=== PATIENT | female | born 1955 | race Caucasian/White ===

== ENCOUNTER → 2016-04-24 | Outpatient (CLI) | payer BC ==
[~2016-04-24] MED LIST: ASPIRIN 81M81 MG/TA2 PO; CLARITIN 1010 MG/TAB PO; CRANBERRY PO; DIAMOX 250MG250 MG PO; FERROUS GL325 MG/TAB PO; FLONASE NASAL S16 GM NS; Flonase Nasal NS; GLUCOPHAGE500 MG/TAB PO; K-DUR 10 MEQ T10 MEQ PO; LANOXIN 0.25M0.25 MG PO; LASIX 40MG TABL40 MG PO; LEVAQUIN 750MG750 M1 PO; MACRODANTIN50 MG/CA1 PO; MULTIPLE VITAMI1 TAB PO; NO HOME MEDICATIONS; NORCO 325 MG-51 TAB PO; NORCO PO; PAXIL 20MG20 MG PO; PYRIDIUM 100MG100 MG PO; REVATIO20 MG PO; SANCTURA20 MG PO; VESICARE 5MG5 MG PO; VITAMIN D 50,1.25 MG PO; WELLBUTRIN SR100 M1 PO; ZESTRIL 10MG10 MG PO; ZESTRIL2.5 MG
== END ==
LOC: COL.RAD 14:26
DX: J98.11 Atelectasis (principal)
CPT/HCPCS: Q9967

== ENCOUNTER 2016-05-02 09:06 | Emergency (ER) | payer BC, OTHER ==
[~2016-05-02] VITALS: Ht 172.7 cm; Wt 164.5 kg
[~2016-05-02 09:06] MED LIST changes: -CRANBERRY PO; -FERROUS GL325 MG/TAB PO; -FLONASE NASAL S16 GM NS; -K-DUR 10 MEQ T10 MEQ PO; -LANOXIN 0.25M0.25 MG PO; -MACRODANTIN50 MG/CA1 PO; -NORCO 325 MG-51 TAB PO; -PYRIDIUM 100MG100 MG PO
[2016-05-02 09:08] VITALS: TEMP 99.2
[2016-05-02 10:09] LABS: ARTERIAL BLD GAS O2 SATURATION 96.7 % (92-100); ARTERIAL BLD GAS TCO2 CT 42.6; ARTERIAL BLOOD GAS BASE EXCESS 10.7 (-2-2); ARTERIAL BLOOD GAS PHT 7.29 C (7.35-7.45); ARTERIAL BLOOD GAS PO2 86.4 mmHg (80-100); ARTERIAL BLOOD GAS PO2T 86.4 (80-100); ARTERIAL BLOOD GAS pH 7.29 (7.35-7.45); OXYHEMOGLOBIN 95.6 %
[2016-05-02 10:14] LABS: ADJUSTED CALCIUM 9.5 mg/dL (8.4-10.2); ALANINE AMINOTRANSFERASE 41 U/L (9-52); ALBUMIN 3.2 gm/dL (3.5-5.0); ALKALINE PHOSPHATASE 85 U/L (50-136); BILIRUBIN,TOTAL 0.6 mg/dL (0.0-1.0); BLOOD UREA NITROGEN 25 mg/dL (7-17); CALCIUM 8.9 mg/dL (8.4-10.2); CHLORIDE 95 mmol/L (98-107); CREATININE, serum 0.92 mg/dL (0.52-1.25); GLUCOSE 126 mg/dL (74-106); POTASSIUM 4.6 mmol/L (3.4-5.0); SODIUM 140 mmol/L (137-145); TOTAL PROTEIN 7.4 gm/dL (6.4-8.2)
[2016-05-02 10:16] LABS: ALLEN TEST YES; ALLENS TEST RESULT PASS; ATS? YES
[2016-05-02 10:20] LABS: CARBON DIOXIDE 41 mmol/L (22-30)
[2016-05-02 10:22] LABS: B-TYPE NATRIURETIC PEPTIDE 253 pg/mL (0-125)
[2016-05-02 10:23] LABS: TROPONIN-I < 0.012 ng/mL (0.000-0.034)
[2016-05-02 10:40] LABS: C-REACTIVE PROTEIN 15.9 mg/dL (0.0-0.9)
[2016-05-02 10:46] LABS: INR 1.2 (0.8-3.0); PROTHROMBIN TIME 13.4 SECONDS (9.7-12.8)
[2016-05-02 11:00] LABS: BASO % 0.2 % (0.0-2.0); EOS # 0.1 (0.0-0.7); EOS % 0.5 % (0-4.0); GRAN # 10.9 (1.4-6.5); GRAN % 85.4 % (42.2-75.2); LYMPH # 0.8 (1.2-3.4); LYMPH % 6.1 % (20.0-51.0); MEAN CELL VOLUME 87 fl (80.0-100.0); MEAN CORPUSCULAR HGB CONC 28 g/dl (33.0-37.0); MEAN PLATELET VOLUME 11.5 fl (7.4-10.4); MONO # 0.9 (0.1-0.6); MONO % 7.2 % (1.7-9.3); PLATELET COUNT 245 K/mm3 (130-400); RED BLOOD COUNT 3.85 M/mm3 (4.10-5.30); REDCELL DISTRIBUTION WIDTH-CV 16.1 % (11.5-14.5); WHITE BLOOD COUNT 12.7 K/mm3 (4.8-10.8)
[2016-05-02 11:08] LABS: HEMATOCRIT 33.6 % (37.0-47.0); HEMOGLOBIN 9.5 g/dl (12.5-16.0); MEAN CORPUSCULAR HEMOGLOBIN 25 pg (27.0-31.0)
[2016-05-02 12:03] LABS: PH 6 (5-8); SQUAMOUS EPITHELIAL 0-2 /hpf; URINE APPEARANCE Hazy; URINE BACTERIA Rare /hpf; URINE BILIRUBIN Negative (NEGATIVE); URINE BLOOD 3+ (NEGATIVE); URINE COLOR Yellow; URINE GLUCOSE Negative (NEGATIVE); URINE KETONE Negative (NEGATIVE); URINE RBC >50 /hpf; URINE UROBILINOGEN Negative (NEGATIVE); URINE WBC 20-50 /hpf
[2016-05-02 14:40] VITALS: BP 163/111; PULSE 113
== END 2016-05-02 14:46 | disposition short-term general hospital (02) ==
LOC: COL.ER 09:06
PROVIDERS: Emergency Medicine
DX: J18.9 Pneumonia, unspecified organism (principal); J96.00 Acute respiratory failure, unspecified whether with hypoxia or hypercapnia; I10 Essential (primary) hypertension; I27.2 Other secondary pulmonary hypertension; N13.2 Hydronephrosis with renal and ureteral calculous obstruction; Z87.442 Personal history of urinary calculi; N39.0 Urinary tract infection, site not specified; B96.20 Unspecified Escherichia coli [E. coli] as the cause of diseases classified elsewhere; Z99.81 Dependence on supplemental oxygen
CPT/HCPCS: J2543; J7030; J7050; Q9967

== ENCOUNTER 2016-06-10 13:19 | Day surgery (SDC) | payer BC ==
[~2016-06-10] VITALS: Ht 172.7 cm; Wt 162.5 kg
[2016-06-10 14:26] VITALS: BP 145/86; PULSE 112; TEMP 99
[2016-06-10 17:30] VITALS: BP 146/83; PULSE 81
[2016-06-10 17:45] VITALS: BP 158/89; PULSE 105
[2016-06-10 18:00] VITALS: BP 128/81; PULSE 99
[2016-06-10 18:15] VITALS: BP 154/88; PULSE 100; TEMP 98.2
[2016-06-10 18:55] VITALS: BP 136/90; PULSE 105; TEMP 98.4
== END 2016-06-10 19:10 | disposition home or self-care (01) ==
LOC: SDCO 13:19 → SURG 17:30 → SDCO 19:10
DX: N20.0 Calculus of kidney (principal); R31.9 Hematuria, unspecified
CPT/HCPCS: OP; C1769; C1894; C2617; J0330; J0690; J1100; J2405; J2704; J2765; J3010; J7120; Q9967

== ENCOUNTER 2016-07-08 10:46 | Day surgery (SDC) | payer BC ==
[~2016-07-08] VITALS: Ht 172.7 cm; Wt 163.5 kg
[2016-07-08] MEDS ORDERED: PYRIDIUM 100MG100 MG PO (11:24)
[2016-07-08] MEDS ORDERED: NORCO 325 MG-51 TAB PO (11:24)
[2016-07-08] MEDS ORDERED: MACRODANTIN50 MG/CA1 PO (11:28)
[2016-07-08] MEDS ORDERED: CLARITIN 1010 MG/TAB PO (11:28)
[2016-07-08 11:37] VITALS: BP 137/70; PULSE 91; TEMP 98.3
[2016-07-08 14:20] VITALS: BP 119/64; PULSE 96; TEMP 97.8
[2016-07-08 14:35] VITALS: BP 132/71; PULSE 112
[2016-07-08 14:50] VITALS: BP 119/85; PULSE 112
[2016-07-08 15:05] VITALS: BP 142/72; PULSE 99
[2016-07-08 17:36] VITALS: BP 115/62; PULSE 85; TEMP 98.2
== END 2016-07-08 15:30 | disposition home or self-care (01) ==
LOC: SDCO 10:46
DX: N20.0 Calculus of kidney (principal); Z86.718 Personal history of other venous thrombosis and embolism; Z79.82 Long term (current) use of aspirin; Z79.899 Other long term (current) drug therapy
CPT/HCPCS: C1769; C1894; C2617; J0330; J0690; J2405; J2704; J3010; J7120; Q9967

== ENCOUNTER 2016-07-11 18:58 | Observation (INO) | payer BC ==
[~2016-07-11] VITALS: Ht 172.7 cm; Wt 170.3 kg
[~2016-07-11 18:58] MED LIST changes: +MACRODANTIN50 MG/CA1 PO; +NORCO 325 MG-51 TAB PO; +PYRIDIUM 100MG100 MG PO
[2016-07-11 19:39] LABS: BASO % 0.3 % (0.0-2.0); EOS # 0.2 (0.0-0.7); EOS % 1.8 % (0-4.0); GRAN # 9.7 (1.4-6.5); LYMPH % 8.6 % (20.0-51.0); MEAN CELL VOLUME 82 fl (80.0-100.0); MEAN CORPUSCULAR HGB CONC 29 g/dl (33.0-37.0); MEAN PLATELET VOLUME 12.4 fl (7.4-10.4); MONO # 0.9 (0.1-0.6); MONO % 7.8 % (1.7-9.3); PLATELET COUNT 202 K/mm3 (130-400); RED BLOOD COUNT 3.81 M/mm3 (4.10-5.30); REDCELL DISTRIBUTION WIDTH-CV 16.9 % (11.5-14.5); WHITE BLOOD COUNT 11.9 K/mm3 (4.8-10.8)
[2016-07-11 19:40] LABS: HEMATOCRIT 31.4 % (37.0-47.0); MEAN CORPUSCULAR HEMOGLOBIN 24 pg (27.0-31.0)
[2016-07-11 19:48] LABS: CALCIUM 9.1 mg/dL (8.4-10.2); CREATININE, serum 0.97 mg/dL (0.52-1.25); POTASSIUM 4.9 mmol/L (3.4-5.0)
[2016-07-11 21:59] LABS: PH 6 (5-8); SQUAMOUS EPITHELIAL None Seen /hpf; URINE APPEARANCE Hazy; URINE BACTERIA Rare /hpf; URINE BILIRUBIN Negative (NEGATIVE); URINE BLOOD 3+ (NEGATIVE); URINE COLOR Yellow; URINE GLUCOSE Negative (NEGATIVE); URINE KETONE Negative (NEGATIVE); URINE RBC >50 /hpf; URINE UROBILINOGEN Negative (NEGATIVE)
[2016-07-12 00:07] VITALS: BP 172/74; PULSE 110; TEMP 98.2
[2016-07-12 05:19] VITALS: BP 159/82; PULSE 107; TEMP 97.9
[2016-07-12 10:34] VITALS: BP 157/68; PULSE 102; TEMP 97.3
[2016-07-12 13:45] VITALS: BP 145/86; PULSE 103; TEMP 98.2
== END 2016-07-12 16:10 | disposition home or self-care (01) ==
LOC: COL.ER 18:58 → SURG 22:58
PROVIDERS: Emergency Medicine
DX: N99.89 Other postprocedural complications and disorders of genitourinary system (principal); R10.12 Left upper quadrant pain; R31.0 Gross hematuria; E66.9 Obesity, unspecified
CPT/HCPCS: G0378; J1170; J2270

== ENCOUNTER 2016-10-15 09:03 | Inpatient (IN) | payer BC ==
[~2016-10-15] VITALS: Ht 172.7 cm; Wt 176.5 kg
[2016-10-15 10:12] VITALS: BP 122/69; PULSE 104; TEMP 98.3
[2016-10-15] MEDS ORDERED: FLONASE NASAL S16 GM NS (10:49)
[2016-10-15] MEDS ORDERED: CRANBERRY PO (10:52)
[2016-10-15 13:14] LABS: BASO % 0.3 % (0.0-2.0); EOS # 0.1 (0.0-0.7); EOS % 1.3 % (0-4.0); GRAN # 5.2 (1.4-6.5); LYMPH % 14.4 % (20.0-51.0); MEAN CELL VOLUME 78 fl (80.0-100.0); MEAN CORPUSCULAR HGB CONC 27 g/dl (33.0-37.0); MEAN PLATELET VOLUME 11.3 fl (7.4-10.4); MONO # 0.8 (0.1-0.6); MONO % 10.7 % (1.7-9.3); PLATELET COUNT 197 K/mm3 (130-400); RED BLOOD COUNT 3.77 M/mm3 (4.10-5.30); REDCELL DISTRIBUTION WIDTH-CV 18.3 % (11.5-14.5); WHITE BLOOD COUNT 7.1 K/mm3 (4.8-10.8)
[2016-10-15 13:15] LABS: HEMATOCRIT 29.5 % (37.0-47.0); MEAN CORPUSCULAR HEMOGLOBIN 21 pg (27.0-31.0)
[2016-10-15 13:31] LABS: ANION GAP 7 mmol/L (7-16); BLOOD UREA NITROGEN 18 mg/dL (7-17); CALCIUM 8.7 mg/dL (8.4-10.2); CARBON DIOXIDE 37 mmol/L (22-30); CHLORIDE 95 mmol/L (98-107); CREATININE, serum 0.78 mg/dL (0.52-1.25); GLUCOSE 95 mg/dL (74-106); SODIUM 139 mmol/L (137-145)
[2016-10-15 13:40] LABS: ARTERIAL BLD GAS O2 SATURATION 93.9 % (92-100); ARTERIAL BLD GAS TCO2 CT 41.1; ARTERIAL BLOOD GAS BASE EXCESS 10.7 (-2-2); ARTERIAL BLOOD GAS HCO3 38.8 meq/L (22-26); ARTERIAL BLOOD GAS PHT 7.32 C (7.35-7.45); ARTERIAL BLOOD GAS PO2 74.2 mmHg (80-100); ARTERIAL BLOOD GAS PO2T 74.2 (80-100); ARTERIAL BLOOD GAS pH 7.32 (7.35-7.45); OXYHEMOGLOBIN 92.9 %
[2016-10-15 13:44] LABS: TROPONIN-I < 0.012 ng/mL (0.000-0.034)
[2016-10-15 13:44] LABS: ATS? YES
[2016-10-15 15:20] LABS: RETIC % 1.5 % (0.5-3.52)
[2016-10-15 15:32] LABS: TOTAL IRON BINDING CAPACITY 410 ug/dL (265-497)
[2016-10-15 16:00] LABS: FERRITIN 10 ng/mL (11-264)
[2016-10-15 19:43] VITALS: BP 142/77; PULSE 105; TEMP 98.3
[2016-10-15 23:13] VITALS: BP 120/52; PULSE 101; TEMP 98.4
[2016-10-16] VITALS (8 sets, daily range): BP systolic 89–114; BP diastolic 36–66; PULSE 90–106; TEMP 98.4–99
[2016-10-16 05:42] LABS: ARTERIAL BLD GAS O2 SATURATION 93.2 % (92-100); ARTERIAL BLOOD GAS BASE EXCESS 12.5 (-2-2); ARTERIAL BLOOD GAS HCO3 39.8 meq/L (22-26); ARTERIAL BLOOD GAS PHT 7.36 C (7.35-7.45); ARTERIAL BLOOD GAS PO2 72.9 mmHg (80-100); ARTERIAL BLOOD GAS PO2T 72.9 (80-100); ARTERIAL BLOOD GAS pH 7.36 (7.35-7.45); OXYHEMOGLOBIN 92.3 %
[2016-10-16 05:46] LABS: ALLEN TEST YES; ALLENS TEST RESULT PASS; ATS? YES
[2016-10-16 09:25] LABS: BASO % 0.3 % (0.0-2.0); EOS # 0.1 (0.0-0.7); EOS % 1.2 % (0-4.0); GRAN # 4.5 (1.4-6.5); GRAN % 69.1 % (42.2-75.2); HEMATOCRIT 29.3 % (37.0-47.0); LYMPH # 1.2 (1.2-3.4); LYMPH % 17.8 % (20.0-51.0); MEAN CELL VOLUME 77 fl (80.0-100.0); MEAN CORPUSCULAR HEMOGLOBIN 21 pg (27.0-31.0); MEAN CORPUSCULAR HGB CONC 27 g/dl (33.0-37.0); MEAN PLATELET VOLUME 11.4 fl (7.4-10.4); MONO # 0.7 (0.1-0.6); MONO % 11.3 % (1.7-9.3); PLATELET COUNT 191 K/mm3 (130-400); RED BLOOD COUNT 3.81 M/mm3 (4.10-5.30); REDCELL DISTRIBUTION WIDTH-CV 18.5 % (11.5-14.5); WHITE BLOOD COUNT 6.5 K/mm3 (4.8-10.8)
[2016-10-17 02:59] VITALS: BP 110/54; PULSE 93; TEMP 99.4
[2016-10-17 06:32] LABS: CALCIUM 8.3 mg/dL (8.4-10.2); CREATININE, serum 0.71 mg/dL (0.52-1.25); POTASSIUM 3.5 mmol/L (3.4-5.0)
[2016-10-17 08:13] VITALS: BP 110/45; BP 112/37; PULSE 110; TEMP 98.5
[2016-10-17 10:02] LABS: BASO % 0.3 % (0.0-2.0); EOS # 0.1 (0.0-0.7); EOS % 1.7 % (0-4.0); GRAN # 5.5 (1.4-6.5); GRAN % 72.3 % (42.2-75.2); LYMPH # 1.1 (1.2-3.4); LYMPH % 14.9 % (20.0-51.0); MEAN CELL VOLUME 77 fl (80.0-100.0); MEAN CORPUSCULAR HGB CONC 28 g/dl (33.0-37.0); MEAN PLATELET VOLUME 11.1 fl (7.4-10.4); MONO # 0.8 (0.1-0.6); MONO % 10.5 % (1.7-9.3); PLATELET COUNT 206 K/mm3 (130-400); RED BLOOD COUNT 3.87 M/mm3 (4.10-5.30); REDCELL DISTRIBUTION WIDTH-CV 18.5 % (11.5-14.5); WHITE BLOOD COUNT 7.6 K/mm3 (4.8-10.8)
[2016-10-17 10:19] LABS: HEMATOCRIT 29.6 % (37.0-47.0); HEMOGLOBIN 8.2 g/dl (12.5-16.0); MEAN CORPUSCULAR HEMOGLOBIN 21 pg (27.0-31.0)
[2016-10-17 11:07] VITALS: BP 114/47; PULSE 105; TEMP 98.7
[2016-10-17 14:27] VITALS: BP 101/54; PULSE 77; TEMP 97.9
[2016-10-17 20:12] VITALS: BP 117/55; PULSE 97; TEMP 98.7
[2016-10-17 23:22] VITALS: BP 147/93; PULSE 98; TEMP 98.6
[2016-10-18 03:55] VITALS: BP 154/62; PULSE 107; TEMP 98.5
[2016-10-18 05:16] LABS: ARTERIAL BLD GAS O2 SATURATION 89.6 % (92-100); ARTERIAL BLD GAS TCO2 CT 46.6; ARTERIAL BLOOD GAS BASE EXCESS 18.1 (-2-2); ARTERIAL BLOOD GAS HCO3 44.5 meq/L (22-26); ARTERIAL BLOOD GAS PHT 7.45 C (7.35-7.45); ARTERIAL BLOOD GAS PO2 56.2 mmHg (80-100); ARTERIAL BLOOD GAS PO2T 56.2 (80-100); ARTERIAL BLOOD GAS pH 7.45 (7.35-7.45); OXYHEMOGLOBIN 88.4 %
[2016-10-18 05:19] LABS: ALLEN TEST YES; ALLENS TEST RESULT PASS; ATS? YES
[2016-10-18 07:44] VITALS: BP 114/48; PULSE 110; TEMP 99.6
[2016-10-18] MEDS ORDERED: FERROUS GL325 MG/TAB PO (08:18)
[2016-10-18] MEDS ORDERED: LASIX 40MG TABL40 MG PO (08:20)
[2016-10-18] MEDS ORDERED: K-DUR 10 MEQ T10 MEQ PO (08:22)
[2016-10-18] MEDS ORDERED: DIAMOX 250MG250 MG PO ×2 (10:59→11:01)
[2016-10-18] MEDS ORDERED: LANOXIN 0.25M0.25 MG PO (10:59)
[2016-10-18 12:23] VITALS: BP 122/41; PULSE 60; TEMP 98.1
[2016-10-18 13:13] LABS: RENIN,PLASMA 0.8 ng/mL/h (())
== END 2016-10-18 16:29 | disposition home or self-care (01) | DRG 189 ==
LOC: MEDICAL 09:03
PROVIDERS: Physician Assistant
DX: J96.02 Acute respiratory failure with hypercapnia (principal); Z68.43 Body mass index [BMI] 50.0-59.9, adult; E66.01 Morbid (severe) obesity due to excess calories; I27.2 Other secondary pulmonary hypertension; R60.9 Edema, unspecified; I10 Essential (primary) hypertension; D50.9 Iron deficiency anemia, unspecified; Z86.718 Personal history of other venous thrombosis and embolism; Z86.711 Personal history of pulmonary embolism
CPT/HCPCS: 99223-AI; 99232-AI; 99239; G8978-GP; G8979-GP; J1650

== ENCOUNTER 2016-12-30 06:22 | Day surgery (SDC) | payer BC ==
[2016-12-30] VITALS (11 sets, daily range): BP systolic 119–152; BP diastolic 57–93; PULSE 84–95; TEMP 98.2
[~2016-12-30] VITALS: Ht 172.8 cm; Wt 156.4 kg
[~2016-12-30 06:22] MED LIST changes: +CRANBERRY PO; +FERROUS GL325 MG/TAB PO; +FLONASE NASAL S16 GM NS; +K-DUR 10 MEQ T10 MEQ PO; +LANOXIN 0.25M0.25 MG PO
[2016-12-30] MEDS ORDERED: PRINIVIL10 MG PO (07:25)
[2016-12-30] MEDS ORDERED: WELLBUTRIN XL150 MG PO (07:25)
[2016-12-30] MEDS ORDERED: HCTZ 25MG TAB25 MG PO (07:25)
[2016-12-30] MEDS ORDERED: ASPIRIN 81M81 MG/TA2 PO (07:27)
[2016-12-30] MEDS ORDERED: SANCTURA20 MG PO (07:28)
[2016-12-30] MEDS ORDERED: LASIX 40MG TABL40 MG PO (07:29)
[2016-12-30] MEDS ORDERED: NATURAL IRON65 MG PO (07:30)
[2016-12-30] MEDS ORDERED: K-DUR 10 MEQ T10 MEQ PO (07:32)
[2016-12-30] MEDS ORDERED: FLONASEALLERGY NS (07:33)
[2016-12-30 07:34] LABS: PROTHROMBIN TIME 11.3 SECONDS (9.7-12.8)
[2016-12-30 07:46] LABS: CALCIUM 9.1 mg/dL (8.4-10.2); CREATININE, serum 1.07 mg/dL (0.52-1.25)
[2016-12-30 08:01] LABS: HEMATOCRIT 41.2 % (37.0-47.0); MEAN CELL VOLUME 79 fl (80.0-100.0); MEAN CORPUSCULAR HEMOGLOBIN 23 pg (27.0-31.0); MEAN CORPUSCULAR HGB CONC 29 g/dl (33.0-37.0); PLATELET COUNT 226 K/mm3 (130-400); RED BLOOD COUNT 5.21 M/mm3 (4.10-5.30); REDCELL DISTRIBUTION WIDTH-CV 19.4 % (11.5-14.5); WHITE BLOOD COUNT 7.4 K/mm3 (4.8-10.8)
== END 2016-12-30 12:55 | disposition home or self-care (01) ==
LOC: EUO 06:22
PROVIDERS: Internal Medicine Cardiovascular Disease
DX: I27.20 Pulmonary hypertension, unspecified (principal); G47.33 Obstructive sleep apnea (adult) (pediatric)
CPT/HCPCS: C1894; J3010

== ENCOUNTER 2017-01-12 20:13 | Emergency (ER) | payer BC ==
[~2017-01-12] VITALS: Ht 172.7 cm; Wt 154.5 kg
[~2017-01-12 20:13] MED LIST changes: +FLONASEALLERGY NS; +HCTZ 25MG TAB25 MG PO; +NATURAL IRON65 MG PO; +PRINIVIL10 MG PO; +WELLBUTRIN XL150 MG PO
[2017-01-12 20:15] VITALS: BP 141/82; TEMP 99.2
[2017-01-12 21:26] LABS: COLLECTION METHOD CLEAN CATCH
[2017-01-12 21:35] LABS: BUDDING YEAST Present /hpf; MUCOUS Present /lpf; PH 7 (5-8); SQUAMOUS EPITHELIAL 0-2 /hpf; URINE APPEARANCE Cloudy; URINE BACTERIA Occasional /hpf; URINE BILIRUBIN Negative (NEGATIVE); URINE BLOOD 3+ (NEGATIVE); URINE COLOR Yellow; URINE GLUCOSE Negative (NEGATIVE); URINE KETONE Negative (NEGATIVE); URINE LEUKOCYTE ESTERASE 3+ (NEGATIVE); URINE PROTEIN(semi-quant) 1+ (NEGATIVE); URINE RBC >50 /hpf; URINE UROBILINOGEN Negative (NEGATIVE)
[2017-01-12 21:36] LABS: URINE WBC >50 /hpf
[2017-01-12 21:50] LABS: BASO # 0.1 (0.0-0.2); BASO % 0.4 % (0.0-2.0); EOS # 0.1 (0.0-0.7); EOS % 0.9 % (0-4.0); GRAN # 10.7 (1.4-6.5); GRAN % 84.7 % (42.2-75.2); HEMATOCRIT 42.2 % (37.0-47.0); HEMOGLOBIN 12.2 g/dl (12.5-16.0); LYMPH # 0.9 (1.2-3.4); LYMPH % 6.8 % (20.0-51.0); MEAN CELL VOLUME 80 fl (80.0-100.0); MEAN CORPUSCULAR HEMOGLOBIN 23 pg (27.0-31.0); MEAN CORPUSCULAR HGB CONC 29 g/dl (33.0-37.0); MEAN PLATELET VOLUME 11.1 fl (7.4-10.4); MONO # 0.9 (0.1-0.6); MONO % 6.8 % (1.7-9.3); PLATELET COUNT 231 K/mm3 (130-400); RED BLOOD COUNT 5.27 M/mm3 (4.10-5.30); WHITE BLOOD COUNT 12.7 K/mm3 (4.8-10.8)
[2017-01-12 22:00] LABS: ADJUSTED CALCIUM 9.1 mg/dL (8.4-10.2); ALBUMIN 4.1 gm/dL (3.5-5.0); BILIRUBIN,TOTAL 0.4 mg/dL (0.0-1.0); C-REACTIVE PROTEIN 1.9 mg/dL (0.0-0.9); CALCIUM 9.2 mg/dL (8.4-10.2); CREATININE, serum 1.18 mg/dL (0.52-1.25); TOTAL PROTEIN 8.4 gm/dL (6.4-8.2)
[2017-01-12] MEDS ORDERED: OMNICEF 300MG300 MG PO (22:55)
[2017-01-12 23:02] VITALS: PULSE 90
== END 2017-01-12 23:03 | disposition home or self-care (01) ==
LOC: COL.ER 20:13
PROVIDERS: Emergency Medicine
DX: N39.0 Urinary tract infection, site not specified (principal); I10 Essential (primary) hypertension; I27.20 Pulmonary hypertension, unspecified; E66.01 Morbid (severe) obesity due to excess calories; Z68.43 Body mass index [BMI] 50.0-59.9, adult; Z87.442 Personal history of urinary calculi

== ENCOUNTER 2017-07-16 07:49 | Inpatient (IN) | payer BC ==
[~2017-07-16] VITALS: Ht 172.7 cm; Wt 162.4 kg
[2017-07-16] VITALS (609 sets, daily range): BP systolic 110–132; BP diastolic 60–85; PULSE 109–115; TEMP 97.9–98.7; O2SAT 85–98
[~2017-07-16 07:49] MED LIST changes: +OMNICEF 300MG300 MG PO
[2017-07-16 08:31] LABS: HEMATOCRIT 40.9 % (37.0-47.0); HEMOGLOBIN 12.3 g/dl (12.5-16.0); MEAN CELL VOLUME 84 fl (80.0-100.0); MEAN CORPUSCULAR HEMOGLOBIN 25 pg (27.0-31.0); MEAN CORPUSCULAR HGB CONC 30 g/dl (33.0-37.0); MEAN PLATELET VOLUME 12.2 fl (7.4-10.4); PLATELET COUNT 249 K/mm3 (130-400); RED BLOOD COUNT 4.89 M/mm3 (4.10-5.30)
[2017-07-16 08:33] LABS: ARTERIAL BLD GAS O2 SATURATION 89.5 % (92-100); ARTERIAL BLD GAS TCO2 CT 31.3; ARTERIAL BLOOD GAS BASE EXCESS 5.3 (-2-2); ARTERIAL BLOOD GAS pH 7.45 (7.35-7.45)
[2017-07-16 08:56] LABS: ALANINE AMINOTRANSFERASE 24 U/L (9-52); ALBUMIN 3.8 gm/dL (3.5-5.0); ALKALINE PHOSPHATASE 85 U/L (50-136); ANION GAP 11 mmol/L (7-16); AST,SGOT 18 U/L (15-37); BILIRUBIN,TOTAL 0.4 mg/dL (0.0-1.0); BLOOD UREA NITROGEN 23 mg/dL (7-17); CALCIUM 8.9 mg/dL (8.4-10.2); CARBON DIOXIDE 33 mmol/L (22-30); CHLORIDE 94 mmol/L (98-107); GLUCOSE 132 mg/dL (74-106); POTASSIUM 4.1 mmol/L (3.4-5.0); SODIUM 138 mmol/L (137-145); TOTAL PROTEIN 8.2 gm/dL (6.4-8.2)
[2017-07-16 09:07] LABS: TROPONIN-I < 0.012 ng/mL (0.000-0.034)
[2017-07-16 09:37] LABS: ANISOCYTOSIS 1+; BAND 1 % (0-10); LYMPHOCYTE 4 % (20.0-51.0); NEUTROPHILS 91 % (42.0-75.2); PLATELET ESTIMATE NORMAL (NORMAL)
[2017-07-16 10:47] LABS: COLLECTION METHOD CATHETER
[2017-07-16 11:01] LABS: MUCOUS Present /lpf; PH 7 (5-8); SQUAMOUS EPITHELIAL 0-2 /hpf; URINE APPEARANCE Hazy; URINE BACTERIA Rare /hpf; URINE BILIRUBIN Negative (NEGATIVE); URINE BLOOD 2+ (NEGATIVE); URINE COLOR Yellow; URINE GLUCOSE Negative (NEGATIVE); URINE KETONE Negative (NEGATIVE); URINE LEUKOCYTE ESTERASE 2+ (NEGATIVE); URINE NITRATE Positive (NEGATIVE); URINE PROTEIN(semi-quant) Negative (NEGATIVE); URINE RBC >50 /hpf; URINE UROBILINOGEN Negative (NEGATIVE)
[2017-07-17] VITALS (607 sets, daily range): BP systolic 108–166; BP diastolic 66–84; PULSE 89–105; TEMP 96.9–99.2; O2SAT 85–98
[2017-07-17 02:31] LABS: MEAN CELL VOLUME 81 fl (80.0-100.0); MEAN CORPUSCULAR HGB CONC 31 g/dl (33.0-37.0); MEAN PLATELET VOLUME 11.3 fl (7.4-10.4); PLATELET COUNT 176 K/mm3 (130-400); RED BLOOD COUNT 4.36 M/mm3 (4.10-5.30); REDCELL DISTRIBUTION WIDTH-CV 15.9 % (11.5-14.5)
[2017-07-17 02:40] LABS: INR 1.2 (0.8-3.0); PROTHROMBIN TIME 14.1 SECONDS (9.7-12.8)
[2017-07-17 02:41] LABS: HEMATOCRIT 35.2 % (37.0-47.0); HEMOGLOBIN 10.9 g/dl (12.5-16.0); MEAN CORPUSCULAR HEMOGLOBIN 25 pg (27.0-31.0)
[2017-07-17 02:52] LABS: ALBUMIN 3.1 gm/dL (3.5-5.0); BILIRUBIN,TOTAL 0.3 mg/dL (0.0-1.0); CALCIUM 8.1 mg/dL (8.4-10.2); CREATININE, serum 0.77 mg/dL (0.52-1.25); MAGNESIUM 1.8 mg/dL (1.6-2.3); POTASSIUM 3.8 mmol/L (3.4-5.0); TOTAL PROTEIN 6.6 gm/dL (6.4-8.2)
[2017-07-17 03:00] LABS: BAND 1 % (0-10); LYMPHOCYTE 3 % (20.0-51.0); METAMYELOCYTE 1 % (0-0); NEUTROPHILS 95 % (42.0-75.2)
[2017-07-17 03:03] LABS: HYPOCHROMIA 2+
[2017-07-17 03:04] LABS: ANISOCYTOSIS 1+
[2017-07-17 03:06] LABS: PLATELET ESTIMATE NORMAL (NORMAL); STOMATOCYTE 1+
[2017-07-18 03:46] VITALS: BP 158/89; PULSE 80; TEMP 97.6
[2017-07-18 07:36] LABS: BASO % 0.2 % (0.0-2.0); EOS % 0.2 % (0-4.0); GRAN # 5.7 (1.4-6.5); GRAN % 68.3 % (42.2-75.2); LYMPH # 1.6 (1.2-3.4); LYMPH % 19.6 % (20.0-51.0); MEAN CELL VOLUME 82 fl (80.0-100.0); MEAN CORPUSCULAR HGB CONC 31 g/dl (33.0-37.0); MEAN PLATELET VOLUME 11.6 fl (7.4-10.4); MONO # 0.9 (0.1-0.6); MONO % 11.3 % (1.7-9.3); PLATELET COUNT 186 K/mm3 (130-400); RED BLOOD COUNT 4.32 M/mm3 (4.10-5.30); REDCELL DISTRIBUTION WIDTH-CV 15.9 % (11.5-14.5)
[2017-07-18 07:45] LABS: HEMATOCRIT 35.4 % (37.0-47.0); HEMOGLOBIN 10.9 g/dl (12.5-16.0); MEAN CORPUSCULAR HEMOGLOBIN 25 pg (27.0-31.0)
[2017-07-18 08:01] LABS: ALBUMIN 3.1 gm/dL (3.5-5.0); BILIRUBIN,TOTAL 0.2 mg/dL (0.0-1.0); CALCIUM 8.1 mg/dL (8.4-10.2); CREATININE, serum 0.66 mg/dL (0.52-1.25); POTASSIUM 3.8 mmol/L (3.4-5.0); TOTAL PROTEIN 6.8 gm/dL (6.4-8.2)
[2017-07-18 08:04] VITALS: BP 143/84; PULSE 76; TEMP 96
[2017-07-18 12:37] VITALS: BP 141/90; PULSE 89; TEMP 98.3
[2017-07-18 16:23] VITALS: BP 154/98; PULSE 93; TEMP 98.7
[2017-07-18 19:26] VITALS: BP 151/84; PULSE 96; TEMP 98.5
[2017-07-18 23:38] VITALS: BP 154/73; PULSE 90; TEMP 98.4
[2017-07-19 04:22] VITALS: BP 189/85; PULSE 95; TEMP 99.6
[2017-07-19 07:00] LABS: BASO % 0.2 % (0.0-2.0); EOS # 0.1 (0.0-0.7); EOS % 0.4 % (0-4.0); GRAN # 9.9 (1.4-6.5); GRAN % 80.9 % (42.2-75.2); LYMPH # 1.1 (1.2-3.4); LYMPH % 9.3 % (20.0-51.0); MEAN CELL VOLUME 83 fl (80.0-100.0); MEAN CORPUSCULAR HGB CONC 30 g/dl (33.0-37.0); MEAN PLATELET VOLUME 12.3 fl (7.4-10.4); MONO # 1.1 (0.1-0.6); MONO % 8.8 % (1.7-9.3); PLATELET COUNT 199 K/mm3 (130-400); RED BLOOD COUNT 4.42 M/mm3 (4.10-5.30)
[2017-07-19 07:01] LABS: HEMATOCRIT 36.5 % (37.0-47.0); HEMOGLOBIN 11.1 g/dl (12.5-16.0); MEAN CORPUSCULAR HEMOGLOBIN 25 pg (27.0-31.0)
[2017-07-19 07:08] LABS: ALBUMIN 3.1 gm/dL (3.5-5.0); BILIRUBIN,TOTAL 0.3 mg/dL (0.0-1.0); CALCIUM 8.2 mg/dL (8.4-10.2); CREATININE, serum 0.68 mg/dL (0.52-1.25); POTASSIUM 3.8 mmol/L (3.4-5.0); TOTAL PROTEIN 6.9 gm/dL (6.4-8.2)
[2017-07-19 07:22] VITALS: BP 160/95; PULSE 105; TEMP 98.7
[2017-07-19] MEDS ORDERED: MEDROL 4MG DOSPA4 MG PO (10:19)
[2017-07-19] MEDS ORDERED: MACRODANTIN100 PO (10:21)
[2017-07-19 11:07] VITALS: BP 168/95; PULSE 110; TEMP 97.4
== END 2017-07-19 16:00 | disposition home or self-care (01) | DRG 872 ==
LOC: COL.ER 07:49 → ICU 09:40 → MEDICAL 07-17 15:00
PROVIDERS: Emergency Medicine; Internal Medicine
DX: A41.51 Sepsis due to Escherichia coli [E. coli] (principal); N39.0 Urinary tract infection, site not specified; Z68.43 Body mass index [BMI] 50.0-59.9, adult; E66.2 Morbid (severe) obesity with alveolar hypoventilation; I50.32 Chronic diastolic (congestive) heart failure; J96.12 Chronic respiratory failure with hypercapnia; B96.20 Unspecified Escherichia coli [E. coli] as the cause of diseases classified elsewhere; I11.0 Hypertensive heart disease with heart failure; I27.22 Pulmonary hypertension due to left heart disease
CPT/HCPCS: 99223-AI; 99232-AI; 99233-AI; 99239; J0456; J0696; J1650; J1720; J7030; J7050; J7512

== ENCOUNTER 2018-06-27 20:33 | Inpatient (IN) | payer BC ==
[~2018-06-27] VITALS: Ht 172.7 cm; Wt 169.0 kg
[2018-06-27] VITALS (35 sets, daily range): BP systolic 144; BP diastolic 86; PULSE 115; TEMP 99.3; O2SAT 92–98
[~2018-06-27 20:33] MED LIST changes: +MACRODANTIN100 PO; +MEDROL 4MG DOSPA4 MG PO
[2018-06-27 21:07] LABS: BASO % 0.2 % (0.0-2.0); EOS # 0.1 (0.0-0.7); EOS % 0.4 % (0-4.0); GRAN # 15.2 (1.4-6.5); GRAN % 86.4 % (42.2-75.2); HEMATOCRIT 41.2 % (37.0-47.0); HEMOGLOBIN 12.3 g/dl (12.5-16.0); LYMPH % 5.6 % (20.0-51.0); MEAN CELL VOLUME 77 fl (80.0-100.0); MEAN CORPUSCULAR HEMOGLOBIN 23 pg (27.0-31.0); MEAN CORPUSCULAR HGB CONC 30 g/dl (33.0-37.0); MEAN PLATELET VOLUME 11.3 fl (7.4-10.4); MONO # 1.2 (0.1-0.6); MONO % 6.9 % (1.7-9.3); PLATELET COUNT 256 K/mm3 (130-400); RED BLOOD COUNT 5.32 M/mm3 (4.10-5.30); REDCELL DISTRIBUTION WIDTH-CV 17.7 % (11.5-14.5)
[2018-06-27 21:28] LABS: ALANINE AMINOTRANSFERASE < 6 U/L (9-52); ALKALINE PHOSPHATASE 83 U/L (50-136); ANION GAP 8 mmol/L (7-16); AST,SGOT 19 U/L (15-37); BILIRUBIN,TOTAL 0.3 mg/dL (0.0-1.0); BLOOD UREA NITROGEN 27 mg/dL (7-17); C-REACTIVE PROTEIN 3.5 mg/dL (0.0-0.9); CALCIUM 9.2 mg/dL (8.4-10.2); CARBON DIOXIDE 31 mmol/L (22-30); CHLORIDE 97 mmol/L (98-107); CREATININE, serum 0.92 (0.52-1.25); GLUCOSE 143 mg/dL (74-106); LIPASE 48 U/L (23-300); POTASSIUM 4.1 mmol/L (3.4-5.0); SODIUM 135 mmol/L (137-145); TOTAL PROTEIN 7.9 gm/dL (6.4-8.2)
[2018-06-27 21:37] LABS: COLLECTION METHOD CLEAN CATCH
[2018-06-27 21:40] LABS: TROPONIN-I < 0.012 ng/mL (0.000-0.035)
[2018-06-27 21:44] LABS: MUCOUS Present /lpf; PH 6 (5-8); SQUAMOUS EPITHELIAL 0-2 /hpf; URINE APPEARANCE Cloudy; URINE BACTERIA Rare /hpf; URINE BILIRUBIN Negative (NEGATIVE); URINE BLOOD 1+ (NEGATIVE); URINE COLOR Yellow; URINE GLUCOSE Negative (NEGATIVE); URINE KETONE Negative (NEGATIVE); URINE LEUKOCYTE ESTERASE 3+ (NEGATIVE); URINE NITRATE Positive (NEGATIVE); URINE PROTEIN(semi-quant) Negative (NEGATIVE); URINE RBC 20-50 /hpf; URINE UROBILINOGEN Negative (NEGATIVE)
--- NOTE | 2018-06-27 22:00 | NUR ---
Pt arrived via stretcher from ED X2 staff assist with wheeled walker and personal belongings. Pt was able to transfer X2 staff assist from stretcher to ICU05 bed. Gait was unsteady. Pt reported decreased mobility in the right leg.
--- NOTE | 2018-06-27 22:50 | NUR ---
Pt report received from Yoselyn Ordoñez RN in ED.
[2018-06-27] MEDS ORDERED: TOPAMAX25 M1 PO (23:57)
[2018-06-27] MEDS ORDERED: POTASSIUM CITRATE PO (23:57)
[2018-06-28] VITALS (651 sets, daily range): BP systolic 98–136; BP diastolic 61–83; PULSE 91–107; TEMP 98.2–99.3; O2SAT 70–100
[2018-06-28 05:56] LABS: BASO % 0.3 % (0.0-2.0); EOS # 0.1 (0.0-0.7); EOS % 0.7 % (0-4.0); GRAN # 8.5 (1.4-6.5); GRAN % 80.5 % (42.2-75.2); HEMATOCRIT 37.2 % (37.0-47.0); HEMOGLOBIN 10.9 g/dl (12.5-16.0); LYMPH # 1.2 (1.2-3.4); LYMPH % 10.9 % (20.0-51.0); MEAN CELL VOLUME 79 fl (80.0-100.0); MEAN CORPUSCULAR HEMOGLOBIN 23 pg (27.0-31.0); MEAN CORPUSCULAR HGB CONC 29 g/dl (33.0-37.0); MEAN PLATELET VOLUME 11.1 fl (7.4-10.4); MONO # 0.8 (0.1-0.6); MONO % 7.3 % (1.7-9.3); PLATELET COUNT 200 K/mm3 (130-400); RED BLOOD COUNT 4.71 M/mm3 (4.10-5.30); REDCELL DISTRIBUTION WIDTH-CV 17.5 % (11.5-14.5)
[2018-06-28 06:03] LABS: CALCIUM 8.1 mg/dL (8.4-10.2); CREATININE, serum 0.91 (0.52-1.25); POTASSIUM 3.4 mmol/L (3.4-5.0)
--- NOTE | 2018-06-28 07:00 | NUR ---
Bedside report provided to Karina MONTAGUE. Pt just got back into bed from using the bedside commode.
--- NOTE | 2018-06-28 07:00 | NUR ---
Bedside report recieved from Mitzi MONTAGUE. Patient awake and alert, participates in report. Denies needs at this time. Call light at side.
--- NOTE | 2018-06-28 11:45 | NUR ---
Report called to Karissa MONTAGUE on medical floor. Will transport patient when able.
--- NOTE | 2018-06-28 12:20 | NUR ---
Transferred to medical room 318 via wheel chair with CNAx2.
--- NOTE | 2018-06-28 12:57 | NUR ---
SW attended clinical rounding and met with patient to discuss discharge planning. Patient lives with her and uses a walker to ambulate. Patients PCP is Dr Thaddeus William and she obtains her medications from [facility]. Patient has a Triolgy and o2 at home provided by [facility]. She plans on returning home with her at discharge. SYLWIA will continue to follow.
--- NOTE | 2018-06-28 14:00 | NUR ---
Patient transferred to room. Patient sitting in chair upon arrival. Medications and allergies reviewed. Patient denies SOB, pain, palpitations, dizzines, n/v patient on 2L NC. Assessment completed. Lungs are clear bilaterally. Right foot discoloration, patient states "is normal". Patient is A/O. Patient has 20g in LFA with NS @ 75mls/hr. there is another IV 20g in right hand.
--- NOTE | 2018-06-28 16:30 | NUR ---
Patient assisted to bathroom. Patient uses walker with chair. patient would like to use bedside commode, if it is easier. steady gate with walker. Patient does have difficulty reaching to clean after using restroom, could use assistance. Patient assisted back to chair, currently working with OT.
--- NOTE | 2018-06-28 17:30 | NUR ---
Patient told aide her IV was "burning and puffy". This nurse checked on left forearm IV site. Patient stated "it was burning a little bit ago but its just puffy". Denies pain on touch, no redness noted. IV was removed, catheter tip intact. IVF started on right hand IV.
--- NOTE | 2018-06-28 20:48 | NUR ---
PT RESTING IN BED a+oX4 REPORTS NO PAIN. NO SOA. SHIFT ASSESSMENT COMPLETE/ NO NEEDS AT THIS TIME CALL LIGHT INREACH
[2018-06-29 00:16] VITALS: BP 134/76; PULSE 94; TEMP 98.3
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
[2018-06-29 03:19] VITALS: BP 133/86; PULSE 103; TEMP 98.4
--- NOTE | 2018-06-29 06:04 | NUR ---
pt had an uneventful night. no pain reported. slept in bed most of night with Trilogy on. no needs at this time call light in reach
[2018-06-29 06:48] LABS: BASO % 0.1 % (0.0-2.0); EOS # 0.1 (0.0-0.7); EOS % 1.5 % (0-4.0); HEMOGLOBIN 10.8 g/dl (12.5-16.0); LYMPH # 1.3 (1.2-3.4); LYMPH % 17.6 % (20.0-51.0); MEAN CELL VOLUME 80 fl (80.0-100.0); MEAN CORPUSCULAR HEMOGLOBIN 24 pg (27.0-31.0); MEAN CORPUSCULAR HGB CONC 30 g/dl (33.0-37.0); MEAN PLATELET VOLUME 11.1 fl (7.4-10.4); MONO # 0.8 (0.1-0.6); MONO % 11.7 % (1.7-9.3); PLATELET COUNT 208 K/mm3 (130-400); RED BLOOD COUNT 4.59 M/mm3 (4.10-5.30); REDCELL DISTRIBUTION WIDTH-CV 17.5 % (11.5-14.5)
--- NOTE | 2018-06-29 06:51 | NUR ---
report given to EDDI Castillo. pt reports no needs at this time
[2018-06-29 06:53] LABS: HEMATOCRIT 36.6 % (37.0-47.0)
--- NOTE | 2018-06-29 07:00 | NUR ---
Reported onto EDDI Topete. Assessment completed. O2 on @ 2L NC, breath sounds diminished bilateral bases, no SOB on rest. 0/10 pain, IV to R hand NS @ 75ml/hr, no phlebitis/inifiltration. 2+ pitting edema bilateral lower extremities. Voices no acute concerns.
[2018-06-29 07:19] LABS: CALCIUM 8.2 mg/dL (8.4-10.2); CREATININE, serum 0.83 (0.52-1.25); POTASSIUM 3.9 mmol/L (3.4-5.0)
[2018-06-29 08:00] VITALS: BP 117/55; PULSE 87; TEMP 98.5
--- NOTE | 2018-06-29 10:25 | NUR ---
PATIENT SITTING IN CHAIR UPON ENTRY. DENIES PAIN, DIZZINESS, PALPITATIONS, NUMBNESS OR TINGLING. LUNG SOUNDS ARE CLEAR BILATERALLY. DENIES N/V AND SOB. CURRENTLY ON 3L NC. NO MAJOR CHANGES FROM YESTERDAY. NO FEVERS. CALL LIGHT WITHIN REACH. DENIES OTHER NEEDS AT THIS TIME.
--- NOTE | 2018-06-29 11:42 | NUR ---
Contact precautions initiatated r/t MRSA precautions. Patient education was given, printed off and explained MRSA. VSS. IV R hand d/c by Anna. pain. CMS checks WNL. Reported off to EDDI Topete.
[2018-06-29] MEDS ORDERED: CEFTIN 250250 MG/TAB PO (13:02)
[2018-06-29 13:30] VITALS: BP 123/71; PULSE 98; TEMP 98.1
--- NOTE | 2018-06-29 14:48 | NUR ---
patient sitting in chair. Discharge instructions, appointments, medications and education reviewed. Patient verbalized understanding. Right hand IV discontinued due to infiltration, catheter tip intact. Patient denies pain. No redness, <1 inch edema. patient waiting on to arrive and will be ready to discharge and be escorted out.
--- NOTE | 2018-06-29 16:08 | NUR ---
Patient escorted out via wheelchair by Georgina, aide and .
== END 2018-06-29 16:08 | disposition home or self-care (01) | DRG 872 ==
LOC: COL.ER 20:33 → ICU 22:06 → MEDICAL 22:06
PROVIDERS: Emergency Medicine; Nurse Practitioner; Physician Assistant; ADMIT Hospitalist
DX: A41.9 Sepsis, unspecified organism (principal); N39.0 Urinary tract infection, site not specified; Z68.43 Body mass index [BMI] 50.0-59.9, adult; I50.22 Chronic systolic (congestive) heart failure; E66.2 Morbid (severe) obesity with alveolar hypoventilation; J98.11 Atelectasis; B96.20 Unspecified Escherichia coli [E. coli] as the cause of diseases classified elsewhere; I11.0 Hypertensive heart disease with heart failure; I27.20 Pulmonary hypertension, unspecified; D64.9 Anemia, unspecified; Z86.711 Personal history of pulmonary embolism; F41.8 Other specified anxiety disorders
CPT/HCPCS: 99223-AI; 99232-AI; 99239; A4216; J0456; J0696; J1650; J7030

== ENCOUNTER 2019-05-05 15:47 | Inpatient (IN) | payer MEDICARE, OTHER ==
[2019-05-05] VITALS (189 sets, daily range): BP systolic 77–132; BP diastolic 41–87; PULSE 101–116; TEMP 98.7; O2SAT 87–98
[~2019-05-05] VITALS: Ht 167.6 cm; Wt 182.8 kg
[~2019-05-05 15:47] MED LIST changes: +CEFTIN 250250 MG/TAB PO; +POTASSIUM CITRATE PO; +TOPAMAX25 M1 PO
[2019-05-05 16:55] LABS: HEMATOCRIT 40.8 % (37.0-47.0); HEMOGLOBIN 11.5 g/dl (12.5-16.0); MEAN CELL VOLUME 87 fl (80.0-100.0); MEAN CORPUSCULAR HEMOGLOBIN 24 pg (27.0-31.0); MEAN CORPUSCULAR HGB CONC 28 g/dl (33.0-37.0); MEAN PLATELET VOLUME 11.1 fl (7.4-10.4); PLATELET COUNT 192 K/mm3 (130-400); RED BLOOD COUNT 4.71 M/mm3 (4.10-5.30); REDCELL DISTRIBUTION WIDTH-CV 15.8 % (11.5-14.5)
[2019-05-05 17:14] LABS: ALANINE AMINOTRANSFERASE 12 U/L (9-52); ALBUMIN 4.1 gm/dL (3.5-5.0); ALKALINE PHOSPHATASE 91 U/L (50-136); ANION GAP 7 mmol/L (7-16); AST,SGOT 26 U/L (15-37); BILIRUBIN,TOTAL 0.9 mg/dL (0.0-1.0); BLOOD UREA NITROGEN 22 mg/dL (7-17); C-REACTIVE PROTEIN 2.7 mg/dL (0.0-0.9); CARBON DIOXIDE 38 mmol/L (22-30); CHLORIDE 92 mmol/L (98-107); CREATININE, serum 0.67 (0.52-1.25); GLUCOSE 154 mg/dL (74-106); POTASSIUM 4.1 mmol/L (3.4-5.0); SODIUM 137 mmol/L (137-145)
[2019-05-05 17:26] LABS: TROPONIN-I < 0.012 ng/mL (0.000-0.035)
[2019-05-05 17:31] LABS: BAND 3 % (0-10); EOSINOPHIL 1 % (0-4); LYMPHOCYTE 4 % (20.0-51.0); NEUTROPHILS 91 % (42.0-75.2); PLATELET ESTIMATE NORMAL (NORMAL)
[2019-05-05 17:32] LABS: HYPOCHROMIA 3+
[2019-05-05 17:33] LABS: STOMATOCYTE 2+
[2019-05-05 19:11] LABS: ARTERIAL BLD GAS O2 SATURATION 89.8 % (92-100); ARTERIAL BLD GAS TCO2 CT 42.2; ARTERIAL BLOOD GAS HCO3 39.3 meq/L (22-26); ARTERIAL BLOOD GAS PO2 61.6 mmHg (80-100); ARTERIAL BLOOD GAS pH 7.24 (7.35-7.45)
[2019-05-05 19:12] LABS: ARTERIAL BLOOD GAS PCO2 93.8 mmHg (35-45)
[2019-05-05] MEDS ORDERED: TOPAMAX 25MG25 M1 PO (21:19)
[2019-05-05 21:21] LABS: ARTERIAL BLD GAS O2 SATURATION 97.5 % (92-100); ARTERIAL BLD GAS TCO2 CT 39.4; ARTERIAL BLOOD GAS BASE EXCESS 7.3 (-2-2); ARTERIAL BLOOD GAS HCO3 36.8 meq/L (22-26); ARTERIAL BLOOD GAS PCO2 85.3 mmHg (35-45); ARTERIAL BLOOD GAS PO2 104.8 mmHg (80-100); ARTERIAL BLOOD GAS pH 7.25 (7.35-7.45)
[2019-05-05 21:36] LABS: INR 1.1 (0.8-3.0); PROTHROMBIN TIME 13.1 SECONDS (9.7-12.8)
[2019-05-05 22:06] LABS: COLLECTION METHOD CATHETER
[2019-05-05 22:15] LABS: MUCOUS Present /lpf; PH 8 (5-8); SQUAMOUS EPITHELIAL None Seen /hpf; URINE APPEARANCE Clear; URINE BACTERIA Rare /hpf; URINE BILIRUBIN Negative (NEGATIVE); URINE BLOOD 1+ (NEGATIVE); URINE COLOR Yellow; URINE GLUCOSE Negative (NEGATIVE); URINE KETONE Negative (NEGATIVE); URINE LEUKOCYTE ESTERASE 1+ (NEGATIVE); URINE NITRATE Positive (NEGATIVE); URINE PROTEIN(semi-quant) Negative (NEGATIVE); URINE RBC 20-50 /hpf; URINE UROBILINOGEN Negative (NEGATIVE)
[2019-05-05 23:03] LABS: ARTERIAL BLD GAS O2 SATURATION 96.3 % (92-100); ARTERIAL BLD GAS TCO2 CT 38.2; ARTERIAL BLOOD GAS BASE EXCESS 5.9 (-2-2); ARTERIAL BLOOD GAS HCO3 35.6 meq/L (22-26); ARTERIAL BLOOD GAS PO2 91.2 mmHg (80-100); ARTERIAL BLOOD GAS pH 7.24 (7.35-7.45)
[2019-05-05 23:04] LABS: ARTERIAL BLOOD GAS PCO2 84.9 mmHg (35-45)
[2019-05-06] VITALS (974 sets, daily range): BP systolic 78–173; BP diastolic 49–104; PULSE 78–107; TEMP 98.5–99.4; O2SAT 78–99
--- NOTE | 2019-05-06 01:50 | NUR ---
2019 - RECEIVED REPORT FROM EDDI DURHAM. 2036 - PT ARRIVED IN UNIT VIA STRETCHER ESCORTED BY RN. PT ALERT AND ORIENTED X 4, ON BIPAP AT 80%, PT'S BP LOW AT 70-80'S, AUTOMATIC HEAD SAWYER AWARE OUTSIDE ROOM. 2049 - DR. GUTHRIE AT BEDSIDE TO PUT CENTRAL LINE IN. 2056 - TIMEOUT DONE FOR CENTRAL LINE PLACEMENT. 2100 - XRAY CALLED FOR PLACEMENT VERIFICATION. AFTER COUPLE OF MINUTES, DR. GUTHRIE GAVE GO SIGNAL FOR LINE READY TO BE USED. 2144 - TODD INSERTED PER ORDER.
--- NOTE | 2019-05-06 02:10 | NUR ---
AT BEDSIDE PER PT'S REQUEST.
--- NOTE | 2019-05-06 02:23 | NUR ---
I received a call at approximately 1:20 from ICU. MRS. Ordoñez requested to see a Tennis Centre Manager. She had been admitted for pneumonia earlier and was feeling anxious. I talked with her, reassured her and prayed with her before leaving. I told her I would check in on her before leaving.
[2019-05-06 05:21] LABS: BASO % 0.2 % (0.0-2.0); GRAN # 14.8 (1.4-6.5); GRAN % 94.9 % (42.2-75.2); LYMPH # 0.5 (1.2-3.4); MEAN CELL VOLUME 86 fl (80.0-100.0); MEAN CORPUSCULAR HGB CONC 28 g/dl (33.0-37.0); MEAN PLATELET VOLUME 12.4 fl (7.4-10.4); MONO # 0.2 (0.1-0.6); MONO % 1.3 % (1.7-9.3); PLATELET COUNT 186 K/mm3 (130-400); RED BLOOD COUNT 4.04 M/mm3 (4.10-5.30); REDCELL DISTRIBUTION WIDTH-CV 15.8 % (11.5-14.5)
[2019-05-06 05:24] LABS: HEMATOCRIT 34.6 % (37.0-47.0); HEMOGLOBIN 9.8 g/dl (12.5-16.0); MEAN CORPUSCULAR HEMOGLOBIN 24 pg (27.0-31.0)
[2019-05-06 05:26] LABS: INR 1.1 (0.8-3.0)
[2019-05-06 05:31] LABS: ALBUMIN 3.5 gm/dL (3.5-5.0); BILIRUBIN,TOTAL 0.4 mg/dL (0.0-1.0); CREATININE, serum 0.87 (0.52-1.25); TOTAL PROTEIN 6.8 gm/dL (6.4-8.2)
[2019-05-06 05:46] LABS: ARTERIAL BLD GAS O2 SATURATION 98.2 % (92-100); ARTERIAL BLD GAS TCO2 CT 31.8; ARTERIAL BLOOD GAS BASE EXCESS 3.2 (-2-2); ARTERIAL BLOOD GAS PCO2 57.1 mmHg (35-45); ARTERIAL BLOOD GAS PO2 103.3 mmHg (80-100); ARTERIAL BLOOD GAS pH 7.34 (7.35-7.45)
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
--- NOTE | 2019-05-06 13:36 | NUR ---
Awake, alert, BP stable off Levo since 0600
--- NOTE | 2019-05-06 13:59 | NUR ---
MEDIA SALES REPRESENTATIVE student met with the patient to complete initial assessment. The patient lives in [place] with her , Bryan. The patient is on 2L of oxygen at home and receives medications from [facility] and has a walker. The patient's PCP is Dr. Alka William and patient receives medications from [facility]. The patient has advanced directives in the EMR. information services tech will continue to follow to ensure a safe discharge.
--- NOTE | 2019-05-06 19:55 | NUR ---
Taking po without difficulty. SPO2 improved with addition of chin strap to home trilogy mask. Denies pain, vitals stable. Low grade temp throughout day. Good urine output.
[2019-05-07] VITALS (913 sets, daily range): BP systolic 125–158; BP diastolic 77–99; PULSE 83–109; TEMP 97.4–98.8; O2SAT 80–97
[2019-05-07 05:22] LABS: ALBUMIN 3.5 gm/dL (3.5-5.0); BILIRUBIN,TOTAL 0.3 mg/dL (0.0-1.0); CALCIUM 8.5 mg/dL (8.4-10.2); CREATININE, serum 0.74 (0.52-1.25); POTASSIUM 4.1 mmol/L (3.4-5.0); TOTAL PROTEIN 6.8 gm/dL (6.4-8.2)
[2019-05-07 05:26] LABS: GRAN % 92.5 % (42.2-75.2); LYMPH # 0.4 (1.2-3.4); LYMPH % 5.1 % (20.0-51.0); MEAN CELL VOLUME 85 fl (80.0-100.0); MEAN CORPUSCULAR HGB CONC 28 g/dl (33.0-37.0); MEAN PLATELET VOLUME 12.2 fl (7.4-10.4); MONO # 0.2 (0.1-0.6); MONO % 2.1 % (1.7-9.3); PLATELET COUNT 184 K/mm3 (130-400); RED BLOOD COUNT 3.96 M/mm3 (4.10-5.30); REDCELL DISTRIBUTION WIDTH-CV 15.9 % (11.5-14.5)
[2019-05-07 05:28] LABS: INR 1.1 (0.8-3.0); PROTHROMBIN TIME 12.8 SECONDS (9.7-12.8)
[2019-05-07 05:28] LABS: ARTERIAL BLD GAS O2 SATURATION 94.3 % (92-100); ARTERIAL BLD GAS TCO2 CT 33.8; ARTERIAL BLOOD GAS BASE EXCESS 5.9 (-2-2); ARTERIAL BLOOD GAS HCO3 32.1 meq/L (22-26); ARTERIAL BLOOD GAS PCO2 55.3 mmHg (35-45); ARTERIAL BLOOD GAS PO2 69.8 mmHg (80-100); ARTERIAL BLOOD GAS pH 7.38 (7.35-7.45)
[2019-05-07 05:32] LABS: HEMATOCRIT 33.5 % (37.0-47.0); HEMOGLOBIN 9.5 g/dl (12.5-16.0); MEAN CORPUSCULAR HEMOGLOBIN 24 pg (27.0-31.0)
--- NOTE | 2019-05-07 07:10 | NUR ---
Report given to EDDI Whitt.
--- NOTE | 2019-05-07 08:00 | NUR ---
Shift assessment complete at this time. Plan of care reviewed at bedside with patient. Additional time taken to address any other needs or concerns. Vitals stable at this time. Pt denies pain or any other discomfort. Bed in low position, call light within reach, will continue to monitor.
--- NOTE | 2019-05-07 12:00 | NUR ---
Pt resting comfortably in bed. Denies pain or any other discomforts at this time. Vitals stable. Bed in low position, call light within reach, will continue to monitor.
--- NOTE | 2019-05-07 16:00 | NUR ---
Pt resting comfortably in bed. Denies pain or any other discomforts. Vitals stable at this time. Bed in low position, call light within reach, will continue to monitor.
--- NOTE | 2019-05-07 18:30 | NUR ---
PT report received from daysmift nurse. PT is sitting in the recliner with eyes open, tv on, and family present. PT denies wants/needs at this time as well as stating that she has no pain. Will continue to monitor.
--- NOTE | 2019-05-08 03:04 | NUR ---
PT wakes up with solu-medrol administration amd requests lotion for her face d/t dry skin. Skin lotion provided. PT resting in bed with CPAP on and no s/s of distress noted. Will continue to monitor.
[2019-05-08 04:22] VITALS: BP 161/83; PULSE 46; TEMP 98.6
--- NOTE | 2019-05-08 07:05 | NUR ---
Report given to Antonette MONTAGUE at bedside. PT sitting in recvliner with 02 on per NC with no s/s of distress noted.
[2019-05-08 08:27] LABS: GRAN # 7.9 (1.4-6.5); GRAN % 90.7 % (42.2-75.2); LYMPH # 0.5 (1.2-3.4); LYMPH % 5.8 % (20.0-51.0); MEAN CELL VOLUME 84 fl (80.0-100.0); MEAN CORPUSCULAR HGB CONC 29 g/dl (33.0-37.0); MONO # 0.3 (0.1-0.6); MONO % 3.2 % (1.7-9.3); PLATELET COUNT 189 K/mm3 (130-400); RED BLOOD COUNT 4.06 M/mm3 (4.10-5.30); REDCELL DISTRIBUTION WIDTH-CV 15.9 % (11.5-14.5)
[2019-05-08 08:29] LABS: PROTHROMBIN TIME 11.8 SECONDS (9.7-12.8)
[2019-05-08 08:37] LABS: HEMATOCRIT 34.1 % (37.0-47.0); HEMOGLOBIN 9.8 g/dl (12.5-16.0); MEAN CORPUSCULAR HEMOGLOBIN 24 pg (27.0-31.0)
[2019-05-08 08:37] LABS: ALBUMIN 3.5 gm/dL (3.5-5.0); BILIRUBIN,TOTAL 0.3 mg/dL (0.0-1.0); CALCIUM 8.7 mg/dL (8.4-10.2); CREATININE, serum 0.77 (0.52-1.25); POTASSIUM 4.3 mmol/L (3.4-5.0); TOTAL PROTEIN 6.8 gm/dL (6.4-8.2)
[2019-05-08 09:03] VITALS: BP 137/78; PULSE 76; TEMP 97.7
[2019-05-08 12:01] VITALS: BP 171/96; PULSE 88; TEMP 98.7
[2019-05-08] MEDS ORDERED: OMNICEF 300MG300 MG PO (12:28)
[2019-05-08] MEDS ORDERED: PREDNISONE20 MG PO (12:32)
--- NOTE | 2019-05-08 16:28 | NUR ---
DISCHARGE EDUCATION WAS PROVIDED. TRIPLE LUMEN TO RT IJ WAS REMOVED WITHOUT ISSUES. WENT OVER PRECAUTIONS AND WHAT TO LOOK FOR WITH PT FOR S/S OF INFECTION FOR IJ AREA. IN TO GIVE PT RIDE HOME. NO QUESTIONS VOICED.
== END 2019-05-08 15:30 | disposition home or self-care (01) | DRG 871 ==
LOC: COL.ER 15:47 → ICU 19:09 → MEDICAL 05-07 17:41
PROVIDERS: Emergency Medicine; Nurse Practitioner Family; ADMIT Hospitalist
PROC: 05HM33Z Insertion of Infusion Device into Right Internal Jugular Vein, Percutaneous Approach (ICD-10-PCS; principal; 2019-05-05)
PROC: 5A09457 Assistance with Respiratory Ventilation, 24-96 Consecutive Hours, Continuous Positive Airway Pressure (ICD-10-PCS; 2019-05-06)
DX: A41.9 Sepsis, unspecified organism (principal); J18.1 Lobar pneumonia, unspecified organism; J96.21 Acute and chronic respiratory failure with hypoxia; R65.21 Severe sepsis with septic shock; E66.2 Morbid (severe) obesity with alveolar hypoventilation; N39.0 Urinary tract infection, site not specified; J44.0 Chronic obstructive pulmonary disease with (acute) lower respiratory infection; F41.9 Anxiety disorder, unspecified; R73.9 Hyperglycemia, unspecified; F32.9 Major depressive disorder, single episode, unspecified; I27.20 Pulmonary hypertension, unspecified; Z87.442 Personal history of urinary calculi; Z68.44 Body mass index [BMI] 60.0-69.9, adult; Z79.82 Long term (current) use of aspirin
CPT/HCPCS: 99223-AI; 99233-AI; 99239; A4216; J0456; J0692; J0696; J1650; J2060; J2405; J2920; J2930; J3370; J7030; J7040; J7050; J7060; Q9967

== ENCOUNTER 2019-11-08 18:36 | Inpatient (IN) | payer MEDICARE, OTHER ==
[2019-11-08] VITALS (9 sets, daily range): BP systolic 133; BP diastolic 90; PULSE 120; TEMP 99.2; O2SAT 93–98
[~2019-11-08] VITALS: Ht 172.7 cm; Wt 174.4 kg
[~2019-11-08 18:36] MED LIST changes: +PREDNISONE20 MG PO; +TOPAMAX 25MG25 M1 PO; +WELLBUTRIN SR150 M1 PO; -WELLBUTRIN XL150 MG PO
[2019-11-08 19:11] LABS: HEMATOCRIT 37.4 % (37.0-47.0); HEMOGLOBIN 10.7 g/dl (12.5-16.0); MEAN CELL VOLUME 80 fl (80.0-100.0); MEAN CORPUSCULAR HEMOGLOBIN 23 pg (27.0-31.0); MEAN CORPUSCULAR HGB CONC 29 g/dl (33.0-37.0); MEAN PLATELET VOLUME 11.8 fl (7.4-10.4); PLATELET COUNT 310 K/mm3 (130-400); RED BLOOD COUNT 4.68 M/mm3 (4.10-5.30)
[2019-11-08 19:26] LABS: ARTERIAL BLD GAS O2 SATURATION 95.6 % (92-100); ARTERIAL BLD GAS TCO2 CT 29.8; ARTERIAL BLOOD GAS BASE EXCESS 2.2 (-2-2); ARTERIAL BLOOD GAS HCO3 28.2 meq/L (22-26); ARTERIAL BLOOD GAS PCO2 51.5 mmHg (35-45); ARTERIAL BLOOD GAS PO2 73.8 mmHg (80-100); ARTERIAL BLOOD GAS pH 7.36 (7.35-7.45)
[2019-11-08 19:39] LABS: ALANINE AMINOTRANSFERASE 46 U/L (4-34); ALBUMIN 3.6 gm/dL (3.5-5.0); ALKALINE PHOSPHATASE 175 U/L (50-136); ANION GAP 7 mmol/L (7-16); AST,SGOT 64 U/L (15-37); BILIRUBIN,TOTAL 0.5 mg/dL (0.0-1.0); BLOOD UREA NITROGEN 39 mg/dL (7-17); CALCIUM 8.9 mg/dL (8.4-10.2); CARBON DIOXIDE 33 mmol/L (22-30); CHLORIDE 95 mmol/L (98-107); GLUCOSE 219 mg/dL (74-106); POTASSIUM 5.1 mmol/L (3.4-5.0); SODIUM 136 mmol/L (137-145); TOTAL PROTEIN 7.8 gm/dL (6.4-8.2)
[2019-11-08 19:42] LABS: COLLECTION METHOD CATHETER
[2019-11-08 19:57] LABS: C-REACTIVE PROTEIN 25.4 mg/dL (0.0-0.9)
[2019-11-08 20:05] LABS: PH 5 (5-8); SQUAMOUS EPITHELIAL 0-2 /hpf; URINE APPEARANCE Cloudy; URINE BACTERIA Rare /hpf; URINE BILIRUBIN Negative (NEGATIVE); URINE BLOOD 2+ (NEGATIVE); URINE COLOR Yellow; URINE GLUCOSE Negative (NEGATIVE); URINE KETONE Negative (NEGATIVE); URINE LEUKOCYTE ESTERASE 2+ (NEGATIVE); URINE NITRATE Negative (NEGATIVE); URINE PROTEIN(semi-quant) 1+ (NEGATIVE); URINE UROBILINOGEN Negative (NEGATIVE)
[2019-11-08 21:08] LABS: TROPONIN-I < 0.012 ng/mL (0.000-0.035)
[2019-11-08 21:45] LABS: HYPOCHROMIA 1+; LYMPHOCYTE 5 % (20.0-51.0); MICROCYTOSIS 1+; NEUTROPHILS 90 % (42.0-75.2); PLATELET ESTIMATE NORMAL (NORMAL)
[2019-11-08 21:46] LABS: ANISOCYTOSIS 1+
[2019-11-09] VITALS (668 sets, daily range): BP systolic 123–130; BP diastolic 59–81; PULSE 88–102; TEMP 97.7–97.9; O2SAT 63–100
--- NOTE | 2019-11-09 00:33 | NUR ---
PT ARRIVED TO UNIT AT 2245 ACCOMPANIED BY 2 ER NURSES. ASKED PT IF SHE WOULD BE ABLE TO SCOOT HERSELF FROM BED-TO-BED. PT ATTEMPTED TO SCOOT OVER, BUT WAS UNABLE TO DO SO. PT WAS THEN TRANSFERRED WITH THE HELP OF STAFF AND A SLIDE BOARD. WAS THEN ATTACHED TO CRM MONITOR AND TO BIPAP. DISCUSSED POC. CALL LIGHT WITHIN REACH.
[2019-11-09 06:21] LABS: MEAN CELL VOLUME 79 fl (80.0-100.0); MEAN CORPUSCULAR HGB CONC 29 g/dl (33.0-37.0); MEAN PLATELET VOLUME 12.2 fl (7.4-10.4); PLATELET COUNT 280 K/mm3 (130-400); RED BLOOD COUNT 4.16 M/mm3 (4.10-5.30); REDCELL DISTRIBUTION WIDTH-CV 16.9 % (11.5-14.5)
[2019-11-09 06:35] LABS: HEMOGLOBIN 9.5 g/dl (12.5-16.0); MEAN CORPUSCULAR HEMOGLOBIN 23 pg (27.0-31.0)
--- NOTE | 2019-11-09 06:38 | NUR ---
Vancomycin Initial Dosing Pharmacy Note Ordering provider: Lauro Medrano MD Indication/duration: SEPSIS, PNA, UTI Relevant comorbidities: DM, OBESITY LABS: WBC 29.2, SCr 2.8, CrCl 30, TMax 102.9, BC PENDING Recommendation: VANCOMYCIN 10 MG/KG Loading dose: 2 grams GIVEN IN ED Maintenance dose: 1.75 grams every 24 hours Trough goal: 15 ug/mL. TROUGH 11/11 @ 2300
[2019-11-09 06:47] LABS: ALBUMIN 3.1 gm/dL (3.5-5.0); BILIRUBIN,TOTAL 0.4 mg/dL (0.0-1.0); CREATININE, serum 2.62 (0.52-1.25); POTASSIUM 5.2 mmol/L (3.4-5.0); TOTAL PROTEIN 6.7 gm/dL (6.4-8.2)
--- NOTE | 2019-11-09 07:00 | NUR ---
BEDSIDE REPORT RECEIVED FROM EDDI MARY. PATIENT SITTING UP IN BED ON 6L O2 VIA NASAL CANNULA. WE DISCUSS THAT THE GOAL TODAY WILL BE TO TITRATE HER O2 REQUIREMENTS DOWN TO BASELINE NEEDS IF POSSIBLE. PATIENT VERBALIZES UNDERSTANDING. CARE TAKE OVER AT THIS TIME.
[2019-11-09 08:01] LABS: BAND 12 % (0-10); LYMPHOCYTE 2 % (20.0-51.0); NEUTROPHILS 86 % (42.0-75.2)
[2019-11-09 08:02] LABS: ANISOCYTOSIS 1+; HYPOCHROMIA 1+; MICROCYTOSIS 1+; PLATELET ESTIMATE NORMAL (NORMAL)
--- NOTE | 2019-11-09 11:40 | NUR ---
SYLWIA met with the patient to discuss discharge plan. The patient lives in [place] with her , Bryan. The patient was guarded with her answers and did not want to give SW Bryan's phone number. She states that Bryan is canadian speaking and would not understand us. She states that she also believes Bryan is getting dementia, due to him being more confused lately. She states that he is safe at home and that he is working with one of her employee's right now. The patient is self employed. She reports independence with ADLs and has a walker, is on continuous home oxyygen, and has a trilogy from [place] [facility]. The patient's PCP is Dr. Alka William and she receives her medications from [facility]. She reports occasional difficulties affording her meds. SW informed her about and discussed [place]. The patient states that she is aware of [place], but feels like it is for individuals with children or in worse situations. The patient does not have advanced directives in EMR, but she reports that she does have a DPOA-HC completed and that her daughter, David Tee ([phone]), is her DPOA-HC. David also lives in [place]. The patient states that she has two other children: Jose and another daughter. She did not want to give SW her other daughter's name. The patient plans to return home with her upon discharge. SYLWIA then contacted and reviewed d/c plan with the patient's daughter, David. David confirms that she is the patient's DPOA-HC and states that she has the documents somewhere at home. She states that she would not be able to look for the documents until next week. David had no other questions or concerns for SYLWIA at this time. PT/OT have been ordered. SW to continue to follow.
--- NOTE | 2019-11-09 12:25 | NUR ---
Initial visit; Patient thanked Nonfarm Animal Caretaker for visit, spiritual care, especially prayer and encouragement.
--- NOTE | 2019-11-09 19:40 | NUR ---
REPORT GIVEN TO EDDI MARY
[2019-11-10] VITALS (484 sets, daily range): BP systolic 113–150; BP diastolic 70–95; PULSE 59–115; TEMP 97.4–99; O2SAT 71–100
--- NOTE | 2019-11-10 01:01 | NUR ---
UPON LOOKING AT PATIENTS AT HOME TRILOGY, MY RECOMMENDATION IS THAT SHE USE THE [facility] V60 FOR THE FOLLOWING REASONS. PATIENT CAN NOT REMEMBER THE LAST TIME HER TUBING WAS CHANGED AND UPON ASSESSING TUBING THERE IS DUST, FUNGUS INSIDE THE TUBING, AND THE COLOR OF THE TUBING HAD CHANGED YELLOW. THE WATER HEATER HAS NOT BEEN CHANGED IN A YEAR PER PATIENT AND NEVER HAS BEEN CLEANED. THERE IS CRUSTED YELLOW RESIDUE ON THE INSIDE. WHEN GOING TO ASSESS THE FILTER ON PATIENTS TRILOGY IT HAS STARTED TO TURN BLACK AND NEEDS REPLACING. MY WORRY IS THAT THE PATIENT WILL BE INHALING DUST AND BACTERIA INTO HER LUNGS AND MAKE HER SICKER. WHEN SPEAKING TO THE PATIENT SHE SAYS THAT SOMEONE IS SUPPOSE TO COME AND HELP CLEAN EVERY MONTH BUT NO ONE HAS BEEN COMING LATLEY. EXPLAINED TO PATIENT WHY IT WOULD BE BEST NOT TO WEAR HOME TRIOLGY. SHE SAYS THAT SHE SEES NOTHING WRONG WITH IT AND DOES NOT WANT TO WEAR V60. FOR PATIENTS SAFTEY I STRONGLY RECOMMENDED NOT USING HERS TILL IT HAS BEEN CLEANED AND NEW TUBING HAS BEEN PLACED. RN HAS BEEN NOTIFIED AND IS IN AGREENCE WITH RECOMMENDATION. WILL ASSESS PATIENT THROUGH OUT THE NIGHT AND ENCOURAGE OUR V60.
[2019-11-10 05:49] LABS: MEAN CELL VOLUME 79 fl (80.0-100.0); MEAN CORPUSCULAR HGB CONC 29 g/dl (33.0-37.0); PLATELET COUNT 292 K/mm3 (130-400); RED BLOOD COUNT 3.99 M/mm3 (4.10-5.30); REDCELL DISTRIBUTION WIDTH-CV 17.2 % (11.5-14.5)
[2019-11-10 06:01] LABS: CALCIUM 8.3 mg/dL (8.4-10.2); CREATININE, serum 2.43 (0.52-1.25); HEMATOCRIT 31.6 % (37.0-47.0); HEMOGLOBIN 9.2 g/dl (12.5-16.0); MAGNESIUM 2.2 mg/dL (1.6-2.3); MEAN CORPUSCULAR HEMOGLOBIN 23 pg (27.0-31.0); POTASSIUM 4.1 mmol/L (3.4-5.0)
[2019-11-10 06:10] LABS: BAND 5 % (0-10); EOSINOPHIL 1 % (0-4); LYMPHOCYTE 7 % (20.0-51.0); NEUTROPHILS 82 % (42.0-75.2)
[2019-11-10 06:11] LABS: ANISOCYTOSIS 1+; HYPOCHROMIA 3+; PLATELET ESTIMATE NORMAL (NORMAL)
[2019-11-10 06:12] LABS: OVALOCYTES 1+
--- NOTE | 2019-11-10 11:52 | NUR ---
Per Stewart, pt will go to OR at 5pm for urology procedure.
--- NOTE | 2019-11-10 12:06 | NUR ---
SW attended clinical rounds. The patient had a large stone obstructing her kidney. Urology was consulted. SW to continue to follow.
--- NOTE | 2019-11-10 12:13 | NUR ---
Talking on phone, signing checks, sitting up in bed feet dangled on floor. Up to void every 1-2 hours.
--- NOTE | 2019-11-10 19:21 | NUR ---
report received from EDDI Smith.
[2019-11-10 19:23] LABS: ARTERIAL BLD GAS O2 SATURATION 93.9 % (92-100); ARTERIAL BLD GAS TCO2 CT 27.1; ARTERIAL BLOOD GAS BASE EXCESS 0.7 (-2-2); ARTERIAL BLOOD GAS HCO3 25.7 meq/L (22-26); ARTERIAL BLOOD GAS PCO2 43.3 mmHg (35-45); ARTERIAL BLOOD GAS PO2 63.9 mmHg (80-100); ARTERIAL BLOOD GAS pH 7.39 (7.35-7.45)
--- NOTE | 2019-11-10 21:16 | NUR ---
PT RETURNED TO THE ICU INTUBATED AFTER AN UNSUCCESSFUL ATTEMPT TO WEAN AND EXTUBATE POST PROCEDURE. iNITIAL SETTING INITIATED AND APPROVED BY DR. DC. ABG TO BE CONDUCTED 45 MIN. POST VENTILATION INITIATION.
--- NOTE | 2019-11-10 21:51 | NUR ---
1930 - DR. LIZAMA NOTIFIED BY EDDI ACOSTA. 2009 - OG TUBE INSERTED AND IN LIS ORDERED. 2019 - TODD CATH INSERTED ORDERED.URINE IS VERY CLOUDY AND OFF WHITE TO LIGHT PEACH IN COLOR.
--- NOTE | 2019-11-10 23:00 | NUR ---
SR. RAMÍREZ CALLED AND UPDATED REGARDING PT.
[2019-11-11] VITALS (836 sets, daily range): BP systolic 99–134; BP diastolic 49–79; PULSE 63–120; TEMP 97.5–98.8; O2SAT 76–98
[2019-11-11 05:06] LABS: MEAN CELL VOLUME 76 fl (80.0-100.0); MEAN CORPUSCULAR HGB CONC 30 g/dl (33.0-37.0); MEAN PLATELET VOLUME 11.4 fl (7.4-10.4); PLATELET COUNT 266 K/mm3 (130-400); RED BLOOD COUNT 3.64 M/mm3 (4.10-5.30); REDCELL DISTRIBUTION WIDTH-CV 17.2 % (11.5-14.5)
[2019-11-11 05:11] LABS: HEMATOCRIT 27.8 % (37.0-47.0); HEMOGLOBIN 8.3 g/dl (12.5-16.0); MEAN CORPUSCULAR HEMOGLOBIN 23 pg (27.0-31.0)
[2019-11-11 05:14] LABS: CALCIUM 8.1 mg/dL (8.4-10.2); CREATININE, serum 1.64 (0.52-1.25); PHOSPHOROUS 3.4 mg/dL (2.5-4.5); POTASSIUM 4.7 mmol/L (3.4-5.0)
[2019-11-11 05:17] LABS: ARTERIAL BLD GAS O2 SATURATION 96.7 % (92-100); ARTERIAL BLD GAS TCO2 CT 26.5; ARTERIAL BLOOD GAS BASE EXCESS 1.1 (-2-2); ARTERIAL BLOOD GAS HCO3 25.3 meq/L (22-26); ARTERIAL BLOOD GAS PCO2 38.5 mmHg (35-45); ARTERIAL BLOOD GAS PO2 87.3 mmHg (80-100); ARTERIAL BLOOD GAS pH 7.44 (7.35-7.45)
[2019-11-11 05:27] LABS: BAND 8 % (0-10); LYMPHOCYTE 3 % (20.0-51.0); NEUTROPHILS 85 % (42.0-75.2)
[2019-11-11 05:28] LABS: ANISOCYTOSIS 1+; HYPOCHROMIA 3+; MICROCYTOSIS 1+; PLATELET ESTIMATE NORMAL (NORMAL)
[2019-11-11 05:29] LABS: OVALOCYTES 1+
--- NOTE | 2019-11-11 07:15 | NUR ---
REPORT GIVEN TO EDDI MONTES.
--- NOTE | 2019-11-11 08:50 | NUR ---
PT EXTUBATED TO 2 LPM NC PER . ERIC PROCEDURE VERY WELL.
--- NOTE | 2019-11-11 09:00 | NUR ---
PT extubated by Nichelle, RT. Patient's vitals remained stable. PT is on 2L NC tolerating well. Lungs are course to asucultation at this time.
--- NOTE | 2019-11-11 10:58 | NUR ---
Vancomycin Initial Dosing Pharmacy Note Ordering provider: MD Stewart Indication/duration: UTI, complicated Relevant comorbidities: Renal stone with stent placed, UTI LABS: eCrCl ~ 50, BMI 57 Recommendation: Loading dose: 2 gram re-load 11/11/19 @ 11:30 Maintenance dose: 1.75g Q24H Trough goal: 15-20 ug/mL Pharmacy will continue to follow.
--- NOTE | 2019-11-11 11:49 | NUR ---
SW met with the patient to review discharge plan. The patient states that she feels okay. She states that she did not work with therapy, because she is tired. States she had a long night and has a procedure today. SW encouraged the patient to work with therapy. SW discussed home health services upon discharge. The patient reports that she is not interested in home health and that she can manage fine at home. The patient is to tentatively transfer up to the floor tomorrow, 11/11. SW to continue to follow.
--- NOTE | 2019-11-11 18:47 | NUR ---
Patient is resting in bed talking on phone with . Patient remained on 2L NC throughout the day without complication. Good appetitie and fluid PO intake.
--- NOTE | 2019-11-11 20:00 | NUR ---
PT RESTING IN BED DENIES PAIN OR SOB, REMAINS ON 2L NC AND TODD IN PLACE. VSS AT THIS TIME. WILL CONTINUE TO MONITOR PT STATUS AND UPDATE PROVIDERS NEEDED.
--- NOTE | 2019-11-11 21:16 | NUR ---
LEVO INCREASED D/T MAP 58, WILL CONTINUE TO MONITOR
[2019-11-12] VITALS (1132 sets, daily range): BP systolic 122–149; BP diastolic 8–94; PULSE 85–109; TEMP 97.6–98.3; O2SAT 67–100
[2019-11-12 06:33] LABS: ARTERIAL BLD GAS O2 SATURATION 97.3 % (92-100); ARTERIAL BLD GAS TCO2 CT 29.4; ARTERIAL BLOOD GAS BASE EXCESS 0.5 (-2-2); ARTERIAL BLOOD GAS HCO3 27.6 meq/L (22-26); ARTERIAL BLOOD GAS PCO2 58.1 mmHg (35-45); ARTERIAL BLOOD GAS PO2 102.5 mmHg (80-100)
[2019-11-12 06:37] LABS: MEAN CELL VOLUME 80 fl (80.0-100.0); MEAN CORPUSCULAR HGB CONC 29 g/dl (33.0-37.0); PLATELET COUNT 304 K/mm3 (130-400); RED BLOOD COUNT 3.78 M/mm3 (4.10-5.30); REDCELL DISTRIBUTION WIDTH-CV 17.6 % (11.5-14.5)
[2019-11-12 07:18] LABS: CALCIUM 8.4 mg/dL (8.4-10.2); CREATININE, serum 1.52 (0.52-1.25); HEMATOCRIT 30.2 % (37.0-47.0); HEMOGLOBIN 8.8 g/dl (12.5-16.0); MEAN CORPUSCULAR HEMOGLOBIN 23 pg (27.0-31.0); PHOSPHOROUS 3.8 mg/dL (2.5-4.5); POTASSIUM 4.3 mmol/L (3.4-5.0)
[2019-11-12 10:28] LABS: ANISOCYTOSIS 2+; BAND 1 % (0-10); LYMPHOCYTE 17 % (20.0-51.0); MICROCYTOSIS 1+; NEUTROPHILS 78 % (42.0-75.2); PLATELET ESTIMATE NORMAL (NORMAL)
--- NOTE | 2019-11-12 19:05 | NUR ---
Assisted up from recliner to commode and back to bed with two assist. Some initial hesitation standing up, but once standing was steady on feet. Instructed will put BIPAP back on a 2000 and then draw an ABG at 2100. Patient agreeable to this plan. Will continue to monitor.
[2019-11-12 21:25] LABS: ARTERIAL BLD GAS O2 SATURATION 97.1 % (92-100); ARTERIAL BLD GAS TCO2 CT 30.4; ARTERIAL BLOOD GAS BASE EXCESS 2.3 (-2-2); ARTERIAL BLOOD GAS HCO3 28.8 meq/L (22-26); ARTERIAL BLOOD GAS PCO2 53.8 mmHg (35-45); ARTERIAL BLOOD GAS PO2 92.3 mmHg (80-100); ARTERIAL BLOOD GAS pH 7.35 (7.35-7.45)
[2019-11-13] VITALS (587 sets, daily range): BP systolic 108–154; BP diastolic 69–95; PULSE 81–116; TEMP 97.8–99; O2SAT 78–100
[2019-11-13 05:14] LABS: BASO % 0.3 % (0.0-2.0); EOS # 0.3 (0.0-0.7); EOS % 2.3 % (0-4.0); GRAN # 8.6 (1.4-6.5); GRAN % 72.3 % (42.2-75.2); LYMPH # 1.8 (1.2-3.4); LYMPH % 15.5 % (20.0-51.0); MEAN CELL VOLUME 79 fl (80.0-100.0); MEAN CORPUSCULAR HGB CONC 29 g/dl (33.0-37.0); MEAN PLATELET VOLUME 11.7 fl (7.4-10.4); MONO # 0.9 (0.1-0.6); MONO % 7.4 % (1.7-9.3); PLATELET COUNT 298 K/mm3 (130-400); REDCELL DISTRIBUTION WIDTH-CV 17.6 % (11.5-14.5)
[2019-11-13 05:22] LABS: CALCIUM 8.6 mg/dL (8.4-10.2); CREATININE, serum 1.46 (0.52-1.25); MAGNESIUM 1.7 mg/dL (1.6-2.3); PHOSPHOROUS 3.4 mg/dL (2.5-4.5); POTASSIUM 4.1 mmol/L (3.4-5.0)
[2019-11-13 05:27] LABS: HEMOGLOBIN 8.7 g/dl (12.5-16.0); MEAN CORPUSCULAR HEMOGLOBIN 23 pg (27.0-31.0)
[2019-11-13 06:04] LABS: ARTERIAL BLD GAS O2 SATURATION 94.3 % (92-100); ARTERIAL BLD GAS TCO2 CT 29.9; ARTERIAL BLOOD GAS BASE EXCESS 2.1 (-2-2); ARTERIAL BLOOD GAS HCO3 28.3 meq/L (22-26); ARTERIAL BLOOD GAS PCO2 51.9 mmHg (35-45); ARTERIAL BLOOD GAS PO2 73.4 mmHg (80-100); ARTERIAL BLOOD GAS pH 7.35 (7.35-7.45)
--- NOTE | 2019-11-13 13:33 | NUR ---
REPORT CALLED TO ISAIAS MONTAGUE. ALL QUESITONS ANSWERED. PT WHEELED UP TO ROOM 309. PTS BELONGINGS, TRILOGY, AND WALKER TAKEN WITH. PT REQUSTED TO GO TO THE RESTROOM ONCE ARRIVAL TO ROOM 309. PT GIVEN CALL LIGHT AND ISAIAS MONTAGUE NOTIFIED. ATTEMPTED TO FIND BSC FOR PT. WAS INFORMED IT WILL NEED TO BE PICKED UP FROM ANOTHER UNIT. WAS INFORMED BY FLOOR STAFF THEY WOULD TAKE CARE OF IT.
--- NOTE | 2019-11-13 16:15 | NUR ---
Patient arrived to room 309 around this time, alert/oriented, transferred from wheelchair to bed with walker and stand by assist, she dneies needs, will continue to monitor
--- NOTE | 2019-11-13 22:00 | NUR ---
Pt assessment completed, charted, alert, oriented. Meds provided as per MAY, tolerated well. Helped to settled on bed, call light on reach. No further needs at this time.
[2019-11-14 04:00] VITALS: BP 142/54; PULSE 96; TEMP 98.3
--- NOTE | 2019-11-14 05:41 | NUR ---
Pt had an uneventful night, slept on and off through out the night. No further needs at this time.
[2019-11-14 05:49] LABS: MEAN CELL VOLUME 77 fl (80.0-100.0); MEAN CORPUSCULAR HGB CONC 29 g/dl (33.0-37.0); MEAN PLATELET VOLUME 11.7 fl (7.4-10.4); PLATELET COUNT 298 K/mm3 (130-400); RED BLOOD COUNT 3.82 M/mm3 (4.10-5.30); REDCELL DISTRIBUTION WIDTH-CV 17.2 % (11.5-14.5)
[2019-11-14 06:07] LABS: ALBUMIN 2.9 gm/dL (3.5-5.0); BILIRUBIN,TOTAL 0.3 mg/dL (0.0-1.0); CALCIUM 8.6 mg/dL (8.4-10.2); CREATININE, serum 1.42 (0.52-1.25); POTASSIUM 3.9 mmol/L (3.4-5.0); TOTAL PROTEIN 6.4 gm/dL (6.4-8.2)
[2019-11-14 06:50] LABS: HEMATOCRIT 29.5 % (37.0-47.0); HEMOGLOBIN 8.6 g/dl (12.5-16.0); MEAN CORPUSCULAR HEMOGLOBIN 23 pg (27.0-31.0)
[2019-11-14 06:55] LABS: BAND 6 % (0-10); EOSINOPHIL 3 % (0-4); LYMPHOCYTE 9 % (20.0-51.0); NEUTROPHILS 80 % (42.0-75.2); PLATELET ESTIMATE NORMAL (NORMAL)
--- NOTE | 2019-11-14 07:15 | NUR ---
Bedside shift report received from EDDI Parker. PT in bed gettting breathing treatment with RT. Denies needs, will continue to monitor.
--- NOTE | 2019-11-14 07:20 | NUR ---
PATIENT WORE BIPAP LAST NIGHT
[2019-11-14 08:01] VITALS: BP 118/68; PULSE 111; TEMP 97.8
--- NOTE | 2019-11-14 09:30 | NUR ---
Assessment charted. Pt was on commode and called, had BM and urine, able to get to recliner independently with walker. Resting in recliner now and states she feels comfortable. PICC to KELVIN, flushes well and good blood return, INT to LFA. Denies pain. LLL is very diminished. PT on 02 at 2L NC. Will continue to monitor.
--- NOTE | 2019-11-14 09:52 | NUR ---
Follow-up visit; Patient thanked Backshoe Person for the Bible she requested and for offfering God's blessings this morning.
[2019-11-14 11:55] VITALS: BP 153/90; PULSE 111; TEMP 98.2
[2019-11-14 16:00] VITALS: BP 138/72; PULSE 101; TEMP 98.6
--- NOTE | 2019-11-14 18:44 | NUR ---
Pt has done well over shift. Resting in bed, or in recliner as needed for comfort. Denies pain. Has done well over shift. Will give bedside shift report to nightshift nurse who will resume care.
[2019-11-14 20:36] VITALS: BP 144/74; PULSE 104; TEMP 98.8
--- NOTE | 2019-11-14 23:48 | NUR ---
Pt assessment completed, charted, alert, oriented, NC 2lit. Meds given as per MAY, tolerated well. Helped settled on bed, call light on reach. No further needs at this time.
[2019-11-15 00:14] VITALS: BP 127/59; PULSE 101; TEMP 98.5
[2019-11-15 04:03] VITALS: BP 120/66; PULSE 94; TEMP 98.1
--- NOTE | 2019-11-15 05:03 | NUR ---
Pt had an uneventful night, slept through out the night, used bi-pap while sleeping. No further needs at this time.
[2019-11-15 05:07] LABS: ARTERIAL BLD GAS O2 SATURATION 95.4 % (92-100); ARTERIAL BLD GAS TCO2 CT 35.8; ARTERIAL BLOOD GAS HCO3 34.2 meq/L (22-26); ARTERIAL BLOOD GAS PCO2 50.6 mmHg (35-45); ARTERIAL BLOOD GAS PO2 75.7 mmHg (80-100); ARTERIAL BLOOD GAS pH 7.45 (7.35-7.45)
[2019-11-15 07:17] VITALS: BP 138/83; PULSE 94; TEMP 98.7
[2019-11-15 07:30] LABS: MEAN CELL VOLUME 78 fl (80.0-100.0); MEAN CORPUSCULAR HGB CONC 30 g/dl (33.0-37.0); MEAN PLATELET VOLUME 12.3 fl (7.4-10.4); PLATELET COUNT 335 K/mm3 (130-400); RED BLOOD COUNT 3.99 M/mm3 (4.10-5.30); REDCELL DISTRIBUTION WIDTH-CV 17.5 % (11.5-14.5)
[2019-11-15 07:38] LABS: HEMATOCRIT 31.2 % (37.0-47.0); HEMOGLOBIN 9.3 g/dl (12.5-16.0); MEAN CORPUSCULAR HEMOGLOBIN 23 pg (27.0-31.0)
[2019-11-15 07:49] LABS: CALCIUM 8.7 mg/dL (8.4-10.2); CREATININE, serum 1.38 (0.52-1.25); POTASSIUM 3.8 mmol/L (3.4-5.0)
[2019-11-15 08:39] LABS: BAND 3 % (0-10); EOSINOPHIL 1 % (0-4); LYMPHOCYTE 18 % (20.0-51.0); METAMYELOCYTE 1 % (0-0); MYELOCYTE 1 % (0-0); NEUTROPHILS 73 % (42.0-75.2); NUCLEATED RED BLOOD CELL 1 (0-6)
[2019-11-15 08:40] LABS: PLATELET ESTIMATE NORMAL (NORMAL)
--- NOTE | 2019-11-15 09:47 | NUR ---
Assessment complete. Patient sitting up in recliner, awake and alert at this time. No complaints of pain or discomfort at this time. BLE are very edematous with notable 2+ edema, patient states this will go down when she goes home and can elevate her legs correctly in her recliner. PICC and IV site are both CD&I, flushed well, PICC jaswinder blood well. Patient had been up to the BSC just before my entry, was tachycardic per tele but this resolved. PAtient is eager to go home. No other needs were expressed at this time. Call light is in reach.
[2019-11-15] MEDS ORDERED: LASIX 20MG TABL20 MG PO (10:13)
[2019-11-15] MEDS ORDERED: DIFLUCAN200 MG PO (10:13)
[2019-11-15] MEDS ORDERED: FERROUS GL325 MG/TAB PO (10:14)
--- NOTE | 2019-11-15 10:22 | NUR ---
SW met with the patient to review discharge plan. The patient states that she is ready to get home. SW discussed home health services again. The patient reports that she does not feel like she needs home health at this time. The patient is to discharge back home with her today, 11/14. SW presented and read the IM form outloud to the patient. The patient verbalized understanding and gave SW approval to sign the form on her behalf. SYLWIA provided her with a copy. No additional needs at this time.
[2019-11-15 11:15] VITALS: BP 153/78; PULSE 109; TEMP 98.2
--- NOTE | 2019-11-15 17:00 | NUR ---
Patient left the floor at this time. Discharge instructions were discussed, no further questions or oncerns were expressed.
== END 2019-11-15 17:39 | disposition home or self-care (01) | DRG 853 ==
LOC: COL.ER 18:36 → ICU 21:32 → MEDICAL 11-13 13:22
PROVIDERS: Emergency Medicine; Family Medicine; Internal Medicine; Internal Medicine Pulmonary Disease; Nurse Practitioner Family; Urology; ADMIT Hospitalist
PROC: 0T768DZ Dilation of Right Ureter with Intraluminal Device, Via Natural or Artificial Opening Endoscopic (ICD-10-PCS; principal; 2019-11-10 17:00)
DX: A41.89 Other specified sepsis (principal); J96.21 Acute and chronic respiratory failure with hypoxia; J96.22 Acute and chronic respiratory failure with hypercapnia; E66.2 Morbid (severe) obesity with alveolar hypoventilation; N39.0 Urinary tract infection, site not specified; N17.9 Acute kidney failure, unspecified; N13.6 Pyonephrosis; Z68.44 Body mass index [BMI] 60.0-69.9, adult; J98.11 Atelectasis; I10 Essential (primary) hypertension; R65.20 Severe sepsis without septic shock; I27.20 Pulmonary hypertension, unspecified; F32.9 Major depressive disorder, single episode, unspecified; F41.9 Anxiety disorder, unspecified; E87.5 Hyperkalemia; D53.9 Nutritional anemia, unspecified; R73.9 Hyperglycemia, unspecified; N20.0 Calculus of kidney; Z99.81 Dependence on supplemental oxygen; Z88.2 Allergy status to sulfonamides; Z20.828 Contact with and (suspected) exposure to other viral communicable diseases
CPT/HCPCS: 99223-AI; 99232-AI; 99233-AI; 99239; C1751; C1769; C2617; J0330; J1100; J1450; J1644; J1815; J1940; J2060; J2250; J2405; J2543; J2704; J2930; J3010; J3370; J7030; J7040; Q9967

== ENCOUNTER 2019-11-30 09:17 | Day surgery (SDC) | payer MEDICARE, OTHER ==
[~2019-11-30] VITALS: Ht 170.2 cm; Wt 162.7 kg
[~2019-11-30 09:17] MED LIST changes: +DIFLUCAN200 MG PO; +LASIX 20MG TABL20 MG PO
[2019-11-30 10:26] VITALS: BP 156/92; PULSE 104; TEMP 97.3
--- NOTE | 2019-11-30 10:40 | NUR ---
Initial visit; Patient request for prayer. Dehydration Plant Operator offered prayer and encouragement prior to Shireen's surgical procedure. Both she and her thanked Dehydration Plant Operator for Spiritual Care.
[2019-11-30] MEDS ORDERED: UROCIT-K 5540 MG/TAB PO (10:49)
[2019-11-30] MEDS ORDERED: CRANBERRY250 MG PO (10:51)
[2019-11-30 12:51] VITALS: TEMP 98.1
[2019-11-30 13:05] VITALS: BP 95/67; PULSE 91
--- NOTE | 2019-11-30 13:05 | NUR ---
Patient returns to room 8 per cart from PACU accompanied by Herminia MONTAGUE and is awake and alert. On oxygen at 2L per nasal cannula and sats 95%. Temp 98.3. Denies pain. Drinking water and denies nausea. Siderails up x2 and call light in reach. Spouse in room. IV fluids infusing.
[2019-11-30 13:20] VITALS: BP 148/94; PULSE 95
--- NOTE | 2019-11-30 13:20 | NUR ---
Eating toast and drinking juice. Continues to deny pain or nausea. Sats 97% on 2L. Talking with spouse.
[2019-11-30 13:35] VITALS: BP 147/83; PULSE 89
--- NOTE | 2019-11-30 13:35 | NUR ---
Resting and offers no complaints. IV fluids continue to infuse.
--- NOTE | 2019-11-30 13:40 | NUR ---
Patient assisted up to the bedside commode with standby assist. Had been incontinent of large amount of pink-tinged urine. Requests to sit on commode. Call light in reach.
--- NOTE | 2019-11-30 13:50 | NUR ---
Pericares done. Assisted with dressing and transfers to the wheelchair. Tolerates activity well.
--- NOTE | 2019-11-30 14:05 | NUR ---
INT needle discontinued and site is free of redness or swelling. Given dismissal instructions and voices understanding of these. Provided script for [employer] App.
--- NOTE | 2019-11-30 14:15 | NUR ---
Dismissal instructions signed and patient dismissed to home driven by spouse and taken to the front door per wheelchair and assisted into van with dismissal instructions in hand.
[2019-11-30] MEDS ORDERED: NORCO 325 MG-51 TAB PO (14:47)
== END 2019-11-30 14:15 | disposition home or self-care (01) ==
LOC: SDCO
DX: N20.1 Calculus of ureter (principal); D64.9 Anemia, unspecified; F32.9 Major depressive disorder, single episode, unspecified; Z86.718 Personal history of other venous thrombosis and embolism; E87.5 Hyperkalemia; I10 Essential (primary) hypertension; F41.1 Generalized anxiety disorder; R73.9 Hyperglycemia, unspecified; Z86.711 Personal history of pulmonary embolism; I27.20 Pulmonary hypertension, unspecified; J30.2 Other seasonal allergic rhinitis; G47.33 Obstructive sleep apnea (adult) (pediatric); Z79.82 Long term (current) use of aspirin; Z88.1 Allergy status to other antibiotic agents; Z88.2 Allergy status to sulfonamides; Z82.3 Family history of stroke; E66.01 Morbid (severe) obesity due to excess calories; Z68.43 Body mass index [BMI] 50.0-59.9, adult; Z20.828 Contact with and (suspected) exposure to other viral communicable diseases
CPT/HCPCS: C1769; C1894; C2617; J0330; J0690; J1100; J1940; J2405; J2704; J3010; J7030

== ENCOUNTER 2020-02-22 11:54 | Inpatient (IN) | payer MEDICARE, OTHER ==
[2020-02-22] VITALS (97 sets, daily range): BP systolic 140–173; BP diastolic 62–109; PULSE 107–114; TEMP 98–98.2; O2SAT 74–99
[~2020-02-22] VITALS: Ht 172.7 cm; Wt 159.6 kg
[~2020-02-22 11:54] MED LIST changes: +CRANBERRY250 MG PO; +UROCIT-K 5540 MG/TAB PO
[2020-02-22 13:04] LABS: ALBUMIN 3.5 gm/dL (3.5-5.0); BILIRUBIN,TOTAL 0.5 mg/dL (0.0-1.0); CALCIUM 8.3 mg/dL (8.4-10.2); CREATININE, serum 0.66 (0.52-1.25); POTASSIUM 3.8 mmol/L (3.4-5.0); TOTAL PROTEIN 6.9 gm/dL (6.4-8.2)
[2020-02-22 13:22] LABS: BASO % 0.2 % (0.0-2.0); EOS % 0.2 % (0-4.0); GRAN # 4.3 (1.4-6.5); GRAN % 74.5 % (42.2-75.2); LYMPH # 0.8 (1.2-3.4); LYMPH % 13.7 % (20.0-51.0); MEAN CELL VOLUME 79 fl (80.0-100.0); MEAN CORPUSCULAR HGB CONC 28 g/dl (33.0-37.0); MEAN PLATELET VOLUME 11.9 fl (7.4-10.4); MONO # 0.6 (0.1-0.6); MONO % 10.9 % (1.7-9.3); PLATELET COUNT 262 K/mm3 (130-400); RED BLOOD COUNT 3.25 M/mm3 (4.10-5.30); REDCELL DISTRIBUTION WIDTH-CV 17.2 % (11.5-14.5)
[2020-02-22 13:25] LABS: HEMATOCRIT 25.5 % (37.0-47.0); HEMOGLOBIN 7.1 g/dl (12.5-16.0); MEAN CORPUSCULAR HEMOGLOBIN 22 pg (27.0-31.0)
[2020-02-22 17:09] LABS: HEMATOCRIT 26.4 % (37.0-47.0); HEMOGLOBIN 7.4 g/dl (12.5-16.0)
--- NOTE | 2020-02-22 19:00 | NUR ---
PT arrived on the unit at 1900 via ER stretcher and was settled into room by 3 staff members. PT oriented to unit and policies, POC, meds for the evening, and goals of care. PT verbalized understanding.
--- NOTE | 2020-02-22 19:33 | NUR ---
Report was received from ER and pt brought to room 5 via cart. Pt moved to bed and placed on monitor. Report given to Mabel MONTAGUE and care transfered.
[2020-02-22 23:26] LABS: COLLECTION METHOD CATHETER
[2020-02-22 23:44] LABS: PH 7 (5-8); SQUAMOUS EPITHELIAL None Seen /hpf; URINE APPEARANCE Hazy; URINE BACTERIA Rare /hpf; URINE BILIRUBIN Negative (NEGATIVE); URINE BLOOD Negative (NEGATIVE); URINE COLOR Yellow; URINE GLUCOSE Negative (NEGATIVE); URINE KETONE Negative (NEGATIVE); URINE LEUKOCYTE ESTERASE 3+ (NEGATIVE); URINE NITRATE Negative (NEGATIVE); URINE PROTEIN(semi-quant) Negative (NEGATIVE); URINE RBC 0-2 /hpf; URINE UROBILINOGEN Negative (NEGATIVE)
[2020-02-23] VITALS (481 sets, daily range): BP systolic 122–162; BP diastolic 57–90; PULSE 81–114; TEMP 97–98.6; O2SAT 82–100
[2020-02-23 01:39] LABS: HEMATOCRIT 25.3 % (37.0-47.0); HEMOGLOBIN 7.4 g/dl (12.5-16.0)
--- NOTE | 2020-02-23 07:00 | NUR ---
PT was awake for a majority of the night and had several episodes of anxiety but denied any physiological issues, just "anxiety and nerves". Ativan orders received from hospitalist, medication administered, and patient verbalized relief of anxiety. PT only wore BiPap for appx. 1 hr of the evening despite encouragement from this RN and RT to keep the BiPap on, PT would take it off frequently and stated she did not want it on anymore.
[2020-02-23 07:24] LABS: MEAN CELL VOLUME 79 fl (80.0-100.0); MEAN CORPUSCULAR HGB CONC 29 g/dl (33.0-37.0); MEAN PLATELET VOLUME 11.3 fl (7.4-10.4); PLATELET COUNT 219 K/mm3 (130-400); RED BLOOD COUNT 3.22 M/mm3 (4.10-5.30); REDCELL DISTRIBUTION WIDTH-CV 17.4 % (11.5-14.5)
[2020-02-23 07:34] LABS: HEMATOCRIT 25.4 % (37.0-47.0); HEMOGLOBIN 7.4 g/dl (12.5-16.0); MEAN CORPUSCULAR HEMOGLOBIN 23 pg (27.0-31.0)
[2020-02-23 07:37] LABS: BILIRUBIN,TOTAL 0.4 mg/dL (0.0-1.0); CALCIUM 8.1 mg/dL (8.4-10.2); CREATININE, serum 0.67 (0.52-1.25); POTASSIUM 3.6 mmol/L (3.4-5.0); TOTAL PROTEIN 6.3 gm/dL (6.4-8.2)
[2020-02-23 11:24] LABS: ANISOCYTOSIS 2+; BAND 5 % (0-10); HYPOCHROMIA 3+; LYMPHOCYTE 16 % (20.0-51.0); NEUTROPHILS 74 % (42.0-75.2); OVALOCYTES 1+
[2020-02-23 11:25] LABS: PLATELET ESTIMATE NORMAL (NORMAL)
--- NOTE | 2020-02-23 11:34 | NUR ---
Report called to Kristian MONTAGUE
--- NOTE | 2020-02-23 12:54 | NUR ---
SW attempted call to complete intake to daughter David [phone]. SW did not reach patients daughter. SW will continue to follow.
--- NOTE | 2020-02-23 13:00 | NUR ---
Patient arrived to medical floor room 306, she is alert/oriented, vital signs stable, denies pain or discomfort, on 3L. o2/ 2L is home baseline, she transferred to [facility], will recheck h&h at 1800
[2020-02-23 17:47] LABS: HEMATOCRIT 21.6 % (37.0-47.0)
--- NOTE | 2020-02-23 20:00 | NUR ---
Assessment complete. Patient wears 3 liters oxygen and is satting 95% with no increased work of breathing. She is afebrile and has no complaints of pain. Her bilateral lower extremities are 2+ edematous, scaly and tight. NS infusing into peripheral IV. Clear liquids provided for nutrition, per diet order. Awaiting availability of blood specimen for transfusion.
--- NOTE | 2020-02-23 23:00 | NUR ---
1 unit PRBC transfusion initiated at this time. Patient educated on transfusion reaction symptoms. This RN remained at bedside for first 15 minutes. No signs of adverse reactions.
[2020-02-24] VITALS (9 sets, daily range): BP systolic 128–155; BP diastolic 67–97; PULSE 98–106; TEMP 97.5–98.7
--- NOTE | 2020-02-24 02:00 | NUR ---
Blood transfusion complete at this time. Patient tolerated well with no signs of adverse reactions. Will recheck H and H 1 hour post transfusion and continue to monitor patient's status.
[2020-02-24 03:37] LABS: MEAN CELL VOLUME 81 fl (80.0-100.0); MEAN CORPUSCULAR HGB CONC 28 g/dl (33.0-37.0); PLATELET COUNT 266 K/mm3 (130-400); RED BLOOD COUNT 3.56 M/mm3 (4.10-5.30); REDCELL DISTRIBUTION WIDTH-CV 17.3 % (11.5-14.5)
[2020-02-24 03:39] LABS: HEMATOCRIT 28.7 % (37.0-47.0); MEAN CORPUSCULAR HEMOGLOBIN 23 pg (27.0-31.0)
[2020-02-24 03:40] LABS: HEMOGLOBIN 8.1 g/dl (12.5-16.0)
[2020-02-24 03:41] LABS: RETIC # 0.03 M/mm3 (0.02-0.16); RETIC % 0.9 % (0.5-3.52)
[2020-02-24 03:50] LABS: ALBUMIN 3.2 gm/dL (3.5-5.0); BILIRUBIN,TOTAL 0.4 mg/dL (0.0-1.0); CALCIUM 8.2 mg/dL (8.4-10.2); CREATININE, serum 0.64 (0.52-1.25); POTASSIUM 4.4 mmol/L (3.4-5.0); TOTAL PROTEIN 6.4 gm/dL (6.4-8.2)
[2020-02-24 03:53] LABS: IRON,SERUM 19 ug/dL (35-150)
[2020-02-24 03:58] LABS: BAND 1 % (0-10); LYMPHOCYTE 12 % (20.0-51.0); NEUTROPHILS 85 % (42.0-75.2); PLATELET ESTIMATE NORMAL (NORMAL)
[2020-02-24 03:59] LABS: ANISOCYTOSIS 1+; HYPOCHROMIA 3+
[2020-02-24 04:02] LABS: MICROCYTOSIS 1+; TOTAL IRON BINDING CAPACITY 327 ug/dL (265-497)
--- NOTE | 2020-02-24 11:44 | NUR ---
Assessment complete. Patient sitting up in recliner at this time. Denies pain or discomfort other than mild tenderness in right lower leg, which is not uncommon for patient per her report. Edema is obvious in lower exrtemitites but patient states that it has improved. IV sites are both CD&I. Pt verbalized hoping to be discharged, informed her the doctors have to round. I also informed her that I would attempt to get her diet advanced. No other needs or concerns at this time. Call light is in reach. Patient remains in recliner, feet elevated at this time.
--- NOTE | 2020-02-24 11:56 | NUR ---
The patient is positive for COVID. SW contacted the patient's phone to complete intake. The patient lives in [place] with her , Bryan. She states that he is mohawk speaking and she did not want to give SW his phone number. She reports independence with ADLs and has a walker, home oxygen, and a trilogy from [facility]. The patient's PCP is Dr. Alka William and she receives her medications from [facility]. The patient does not have a DPOA-HC in EMR, but she states that she does have one completed and probably at home. She states that her daughter, David (ph#[phone]), is her DPOA-HC. The patient plans to return home with her upon discharge. SW contacted and reviewed the d/c plan with the patient's daughter, David. David confirms that she is the patient's DPOA-HC and that she has the forms at home. David had no other questions for SW at this time. SW to continue to follow.
--- NOTE | 2020-02-24 18:18 | NUR ---
Pt has had an uneventful shift. Sat in recliner for the day lifting legs on and off. No complaints of pain. Adequate output through goodman. No other needs at this time. Call light is in reach.
[2020-02-24 19:15] LABS: HEMATOCRIT 30.6 % (37.0-47.0); HEMOGLOBIN 8.7 g/dl (12.5-16.0)
--- NOTE | 2020-02-24 20:30 | NUR ---
Received report from Kaylynn. Seen patient sitting in the recliner. She is on O2 at 3lpm via NC. She denies pain. She is alert and oriented. She has goodman catheter draining clear, yellow urine. Updated patient regarding her latest hemoglobin. No other needs noted.
[2020-02-25 04:00] VITALS: BP 144/86; PULSE 102; TEMP 98
[2020-02-25 06:29] LABS: CALCIUM 8.5 mg/dL (8.4-10.2); CREATININE, serum 0.71 (0.52-1.25)
[2020-02-25 06:43] LABS: MEAN CELL VOLUME 80 fl (80.0-100.0); MEAN CORPUSCULAR HGB CONC 29 g/dl (33.0-37.0); MEAN PLATELET VOLUME 11.9 fl (7.4-10.4); PLATELET COUNT 265 K/mm3 (130-400); RED BLOOD COUNT 3.54 M/mm3 (4.10-5.30); REDCELL DISTRIBUTION WIDTH-CV 17.6 % (11.5-14.5)
--- NOTE | 2020-02-25 06:43 | NUR ---
Patient had uneventful night. Still on O2 at 3lpm via NC. She was sitting now at the recliner. She is afebrile. No complains of pain.
[2020-02-25 07:45] LABS: HEMATOCRIT 28.4 % (37.0-47.0); HEMOGLOBIN 8.3 g/dl (12.5-16.0); MEAN CORPUSCULAR HEMOGLOBIN 23 pg (27.0-31.0)
[2020-02-25 07:53] LABS: BAND 3 % (0-10); LYMPHOCYTE 15 % (20.0-51.0); NEUTROPHILS 74 % (42.0-75.2); PLATELET ESTIMATE NORMAL (NORMAL)
[2020-02-25 07:54] LABS: ANISOCYTOSIS 1+; HYPOCHROMIA 3+
[2020-02-25 09:13] VITALS: BP 151/87; PULSE 109; TEMP 97.5
[2020-02-25 13:04] VITALS: BP 151/69; PULSE 104; TEMP 97.2
[2020-02-25] MEDS ORDERED: TYLENOL 325MG325 MG PO (13:10)
[2020-02-25] MEDS ORDERED: DECADRON6 MG PO (13:11)
[2020-02-25] MEDS ORDERED: PREVACID 30MG30 M1 PO (13:15)
[2020-02-25] MEDS ORDERED: DOXYCYCLINE 10100 MG PO (13:16)
--- NOTE | 2020-02-25 15:00 | NUR ---
Patient is alert and oriented. 3+ edema on Bilateral lower extremity. patient require 1-2 person golf player assistant to ambulate from bed to chair. Patient have goodman catheter in, providing adequate output. On 2L O2 at 93%. patient was discharge with new medication tylenol, decadron, lensoprazole, doxycycline. Aspirin was discontinued. INT on both arms was discontinued. patient discharge home with .
== END 2020-02-25 15:00 | disposition home or self-care (01) | DRG 177 ==
LOC: COL.ER 11:54 → ICU 14:43 → MEDICAL 02-23 12:32
PROVIDERS: Emergency Medicine; Hospitalist; Internal Medicine; Nurse Practitioner Family; Physician Assistant; ADMIT Student in an Organized Health Care Education/Training Program
DX: U07.1 COVID-19 (principal); J12.89 Other viral pneumonia; J96.21 Acute and chronic respiratory failure with hypoxia; K92.1 Melena; E66.2 Morbid (severe) obesity with alveolar hypoventilation; D62 Acute posthemorrhagic anemia; E87.3 Alkalosis; J96.12 Chronic respiratory failure with hypercapnia; N39.0 Urinary tract infection, site not specified; Z68.43 Body mass index [BMI] 50.0-59.9, adult; I10 Essential (primary) hypertension; F41.9 Anxiety disorder, unspecified; F32.9 Major depressive disorder, single episode, unspecified; T39.395A Adverse effect of other nonsteroidal anti-inflammatory drugs [NSAID], initial encounter; I27.20 Pulmonary hypertension, unspecified; Z99.81 Dependence on supplemental oxygen; Z88.2 Allergy status to sulfonamides
CPT/HCPCS: 99223-AI; 99232-AI; 99233-AI; 99239; A9284; C9113; J0360; J0696; J1100; J2060; J2704; J2916; J7030; J8540; P9016

== ENCOUNTER 2020-04-20 10:01 | Day surgery (SDC) | payer MEDICARE, OTHER ==
[~2020-04-20] VITALS: Ht 172.7 cm; Wt 171.8 kg
[~2020-04-20 10:01] MED LIST changes: -CENTRUM SILVER1 CTB PO; -IRON TABLETS325 MG PO; -VITAMIN C500 MG PO
[2020-04-20] MEDS ORDERED: IRON TABLETS325 MG PO (11:00)
[2020-04-20] MEDS ORDERED: CENTRUM SILVER1 CTB PO (11:02)
[2020-04-20] MEDS ORDERED: VITAMIN C500 MG PO (11:02)
[2020-04-20 11:24] VITALS: BP 176/117; PULSE 113; TEMP 98.1
[2020-04-20 12:25] VITALS: BP 182/106; PULSE 111; TEMP 98.7
--- NOTE | 2020-04-20 12:25 | NUR ---
Pt to GI bay 8 via cart from ENDO. Pt awake and alert. O2 on at 4 liters via nasal canula. Pt denies pain or nausea. Water and apple sauce given per pt request. Call light within reach.
[2020-04-20 12:40] VITALS: BP 184/109; PULSE 111
--- NOTE | 2020-04-20 12:40 | NUR ---
Pt continues to rest. Tolerating po food and fluids without difficulties. Call light within reach.
[2020-04-20 12:55] VITALS: BP 187/107; PULSE 111
--- NOTE | 2020-04-20 12:55 | NUR ---
O2 has been weened down to 2 liters via nasal canula. Will continue to monitor. Call light within reach.
--- NOTE | 2020-04-20 13:10 | NUR ---
Discharge instructions reviewed. Pt voices undertanding. IV site discontinued with all parts intact. Pt assisted x2 nurses with dressing and transferring to wheel chair.
--- NOTE | 2020-04-20 13:40 | NUR ---
Pt escorted to private car via wheel chair. Pt accompanied home by her .
== END 2020-04-20 13:40 | disposition home or self-care (01) ==
LOC: SDCO 10:01
DX: D12.5 Benign neoplasm of sigmoid colon (principal); K57.30 Diverticulosis of large intestine without perforation or abscess without bleeding; K92.1 Melena; D50.9 Iron deficiency anemia, unspecified; K29.30 Chronic superficial gastritis without bleeding; I10 Essential (primary) hypertension; E66.01 Morbid (severe) obesity due to excess calories; F32.9 Major depressive disorder, single episode, unspecified; G47.33 Obstructive sleep apnea (adult) (pediatric); Z86.718 Personal history of other venous thrombosis and embolism; Z87.440 Personal history of urinary (tract) infections; Z68.43 Body mass index [BMI] 50.0-59.9, adult; Z20.822 Contact with and (suspected) exposure to COVID-19; Z88.2 Allergy status to sulfonamides
CPT/HCPCS: J2704; J7120

== ENCOUNTER → 2020-04-20 | Outpatient (CLI) | payer MEDICARE, OTHER ==
[~2020-04-20] MED LIST changes: +CENTRUM SILVER1 CTB PO; +DECADRON6 MG PO; +DOXYCYCLINE 10100 MG PO; +IRON TABLETS325 MG PO; +PREVACID 30MG30 M1 PO; +TYLENOL 325MG325 MG PO; +VITAMIN C500 MG PO
== END ==
LOC: COL.RAD 10:09
DX: R91.8 Other nonspecific abnormal finding of lung field (principal)

== ENCOUNTER 2020-05-29 17:34 | Inpatient (IN) | payer MEDICARE, OTHER ==
[~2020-05-29] VITALS: Ht 172.7 cm; Wt 149.5 kg
[~2020-05-29 17:34] MED LIST changes: +CENTRUM SILVER1 CTB PO; +IRON TABLETS325 MG PO; +VITAMIN C500 MG PO
[2020-05-29 18:15] LABS: HEMOGLOBIN 10.3 g/dl (12.5-16.0); MEAN CELL VOLUME 77 fl (80.0-100.0); MEAN CORPUSCULAR HEMOGLOBIN 23 pg (27.0-31.0); MEAN CORPUSCULAR HGB CONC 29 g/dl (33.0-37.0); PLATELET COUNT 194 K/mm3 (130-400); RED BLOOD COUNT 4.53 M/mm3 (4.10-5.30); REDCELL DISTRIBUTION WIDTH-CV 18.4 % (11.5-14.5)
[2020-05-29 18:24] LABS: ALBUMIN 3.7 gm/dL (3.5-5.0); BILIRUBIN,TOTAL 0.7 mg/dL (0.0-1.0); CALCIUM 8.5 mg/dL (8.4-10.2); CREATININE, serum 2.34 (0.52-1.25); POTASSIUM 3.9 mmol/L (3.4-5.0); TOTAL PROTEIN 7.2 gm/dL (6.4-8.2)
[2020-05-29 18:36] LABS: TROPONIN-I 0.032 ng/mL (0.000-0.035)
[2020-05-29 18:38] LABS: INR 1.3 (0.8-3.0); PROTHROMBIN TIME 15.1 SECONDS (9.7-12.8)
[2020-05-29 18:39] LABS: BAND 13 % (0-10); NEUTROPHILS 85 % (42.0-75.2)
[2020-05-29 18:40] LABS: HYPOCHROMIA 3+; MICROCYTOSIS 1+
[2020-05-29 18:41] LABS: ANISOCYTOSIS 2+; PARTIAL THROMBOPLASTIN TIME 34.6 SECONDS (26.0-37.0); PLATELET ESTIMATE NORMAL (NORMAL)
[2020-05-29 18:44] LABS: COLLECTION METHOD CLEAN CATCH
[2020-05-29 18:57] LABS: URINE COLOR Amber
[2020-05-29 18:58] LABS: PH 5 (5-8); URINE APPEARANCE Turbid; URINE BILIRUBIN Negative (NEGATIVE); URINE BLOOD 3+ (NEGATIVE); URINE GLUCOSE Negative (NEGATIVE); URINE KETONE Negative (NEGATIVE); URINE LEUKOCYTE ESTERASE 2+ (NEGATIVE); URINE NITRATE Negative (NEGATIVE); URINE PROTEIN(semi-quant) 2+ (NEGATIVE); URINE UROBILINOGEN Negative (NEGATIVE)
[2020-05-29 18:59] LABS: MUCOUS Present /lpf; SQUAMOUS EPITHELIAL None Seen /hpf; URINE BACTERIA Many /hpf; URINE RBC >50 /hpf
[2020-05-29 19:00] LABS: BUDDING YEAST Present /hpf
[2020-05-29 21:35] VITALS: BP 112/74; PULSE 109; TEMP 98.6
[2020-05-29 21:46] VITALS: O2SAT 97
[2020-05-29 21:50] VITALS: O2SAT 93
[2020-05-29 22:45] VITALS: BP 140/64; PULSE 107
[2020-05-29 23:58] VITALS: O2SAT 92
[2020-05-30] VITALS (710 sets, daily range): BP systolic 94–130; BP diastolic 64–84; PULSE 100–107; TEMP 98–98.7; O2SAT 85–96
[2020-05-30 00:46] LABS: MEAN CELL VOLUME 77 fl (80.0-100.0); MEAN CORPUSCULAR HGB CONC 29 g/dl (33.0-37.0); MEAN PLATELET VOLUME 10.9 fl (7.4-10.4); PLATELET COUNT 157 K/mm3 (130-400); RED BLOOD COUNT 4.16 M/mm3 (4.10-5.30); REDCELL DISTRIBUTION WIDTH-CV 18.6 % (11.5-14.5)
[2020-05-30 00:48] LABS: HEMATOCRIT 32.2 % (37.0-47.0); HEMOGLOBIN 9.4 g/dl (12.5-16.0); MEAN CORPUSCULAR HEMOGLOBIN 23 pg (27.0-31.0)
[2020-05-30 01:08] LABS: ALBUMIN 3.2 gm/dL (3.5-5.0); BILIRUBIN,TOTAL 0.5 mg/dL (0.0-1.0); POTASSIUM 4.3 mmol/L (3.4-5.0); TOTAL PROTEIN 6.7 gm/dL (6.4-8.2)
[2020-05-30 01:29] LABS: ANISOCYTOSIS 1+; BAND 21 % (0-10); HYPOCHROMIA 3+; LYMPHOCYTE 2 % (20.0-51.0); METAMYELOCYTE 4 % (0-0); MICROCYTOSIS 1+; NEUTROPHILS 62 % (42.0-75.2); PLATELET ESTIMATE NORMAL (NORMAL)
[2020-05-30 05:54] LABS: MEAN CELL VOLUME 78 fl (80.0-100.0); MEAN CORPUSCULAR HGB CONC 29 g/dl (33.0-37.0); PLATELET COUNT 155 K/mm3 (130-400); REDCELL DISTRIBUTION WIDTH-CV 18.7 % (11.5-14.5)
[2020-05-30 06:03] LABS: ALBUMIN 3.1 gm/dL (3.5-5.0); BILIRUBIN,TOTAL 0.3 mg/dL (0.0-1.0); CREATININE, serum 1.91 (0.52-1.25); POTASSIUM 4.3 mmol/L (3.4-5.0); TOTAL PROTEIN 6.8 gm/dL (6.4-8.2)
[2020-05-30 06:22] LABS: HEMATOCRIT 32.9 % (37.0-47.0); HEMOGLOBIN 9.4 g/dl (12.5-16.0); MEAN CORPUSCULAR HEMOGLOBIN 22 pg (27.0-31.0)
[2020-05-30 06:50] LABS: ANISOCYTOSIS 1+; BAND 29 % (0-10); HYPOCHROMIA 1+; LYMPHOCYTE 2 % (20.0-51.0); METAMYELOCYTE 6 % (0-0); NEUTROPHILS 59 % (42.0-75.2); OVALOCYTES 1+; PLATELET ESTIMATE NORMAL (NORMAL)
[2020-05-31] VITALS (651 sets, daily range): BP systolic 102–135; BP diastolic 53–89; PULSE 101–113; TEMP 97.9–98.2; O2SAT 82–100
[2020-05-31 06:17] LABS: MEAN CELL VOLUME 79 fl (80.0-100.0); MEAN CORPUSCULAR HGB CONC 28 g/dl (33.0-37.0); PLATELET COUNT 131 K/mm3 (130-400); REDCELL DISTRIBUTION WIDTH-CV 18.8 % (11.5-14.5)
[2020-05-31 06:25] LABS: CALCIUM 8.3 mg/dL (8.4-10.2); CREATININE, serum 1.38 (0.52-1.25); POTASSIUM 4.4 mmol/L (3.4-5.0)
[2020-05-31 06:34] LABS: HEMATOCRIT 33.8 % (37.0-47.0); HEMOGLOBIN 9.6 g/dl (12.5-16.0); MEAN CORPUSCULAR HEMOGLOBIN 22 pg (27.0-31.0)
[2020-05-31 07:40] LABS: BAND 20 % (0-10); HYPOCHROMIA 1+; LYMPHOCYTE 2 % (20.0-51.0); NEUTROPHILS 78 % (42.0-75.2); OVALOCYTES 1+; PLATELET ESTIMATE NORMAL (NORMAL)
[2020-06-01] VITALS (536 sets, daily range): BP systolic 118–149; BP diastolic 77–99; PULSE 98–110; TEMP 97.9–99.2; O2SAT 83–100
[2020-06-01 04:53] LABS: MEAN CELL VOLUME 78 fl (80.0-100.0); MEAN CORPUSCULAR HGB CONC 29 g/dl (33.0-37.0); PLATELET COUNT 126 K/mm3 (130-400); RED BLOOD COUNT 4.24 M/mm3 (4.10-5.30); REDCELL DISTRIBUTION WIDTH-CV 18.8 % (11.5-14.5)
[2020-06-01 05:00] LABS: HEMATOCRIT 33.1 % (37.0-47.0); HEMOGLOBIN 9.5 g/dl (12.5-16.0); MEAN CORPUSCULAR HEMOGLOBIN 22 pg (27.0-31.0)
[2020-06-01 05:03] LABS: CALCIUM 8.7 mg/dL (8.4-10.2); CREATININE, serum 1.09 (0.52-1.25); POTASSIUM 4.7 mmol/L (3.4-5.0)
[2020-06-01 05:21] LABS: BAND 2 % (0-10); LYMPHOCYTE 4 % (20.0-51.0); NEUTROPHILS 90 % (42.0-75.2)
[2020-06-01 05:22] LABS: MICROCYTOSIS 1+; OVALOCYTES 1+
[2020-06-01 05:23] LABS: PLATELET ESTIMATE DECREASED (NORMAL); TARGET CELLS 1+
[2020-06-01 05:24] LABS: POIKILOCYTOSIS 1+
[2020-06-01] MEDS ORDERED: PRILOSEC 20MG20 MG PO (11:26)
[2020-06-01] MEDS ORDERED: VITAMIN D31000 I1 PO (11:27)
[2020-06-01] MEDS ORDERED: LIPITOR 80MG80 MG PO (11:28)
[2020-06-01] MEDS ORDERED: ASPIRIN E.C. 8181 MG PO (11:28)
[2020-06-01] MEDS ORDERED: COZAAR 25MG25 MG/TAB PO (11:30)
[2020-06-01] MEDS ORDERED: HYGROTON 2525 MG/TAB (11:31)
[2020-06-01] MEDS ORDERED: OMEGA-3 1000 MG1 CAP PO (11:32)
[2020-06-01] MEDS ORDERED: CALCIUM 600MG+D1 TAB PO (11:33)
[2020-06-01] MEDS ORDERED: FLOMAX 0.40.4 MG/CAP (11:34)
[2020-06-01] MEDS ORDERED: COMPAZINE 110 MG/TAB PO (11:34)
[2020-06-02] VITALS (483 sets, daily range): BP systolic 149–161; BP diastolic 84–102; PULSE 101–109; TEMP 98–98.7; O2SAT 63–100
[2020-06-02 05:58] LABS: BASO % 0.4 % (0.0-2.0); EOS % 0.2 % (0-4.0); GRAN # 8.4 (1.4-6.5); GRAN % 81.5 % (42.2-75.2); LYMPH % 9.9 % (20.0-51.0); MEAN CELL VOLUME 79 fl (80.0-100.0); MEAN CORPUSCULAR HGB CONC 28 g/dl (33.0-37.0); MEAN PLATELET VOLUME 11.3 fl (7.4-10.4); MONO # 0.7 (0.1-0.6); MONO % 7.1 % (1.7-9.3); PLATELET COUNT 142 K/mm3 (130-400); RED BLOOD COUNT 4.39 M/mm3 (4.10-5.30)
[2020-06-02 06:02] LABS: HEMATOCRIT 34.6 % (37.0-47.0); HEMOGLOBIN 9.8 g/dl (12.5-16.0); MEAN CORPUSCULAR HEMOGLOBIN 22 pg (27.0-31.0)
[2020-06-02 06:07] LABS: CALCIUM 8.9 mg/dL (8.4-10.2); CREATININE, serum 0.89 (0.52-1.25); POTASSIUM 4.2 mmol/L (3.4-5.0)
[2020-06-03 00:46] VITALS: BP 151/77; PULSE 105; TEMP 98.4
[2020-06-03 03:47] VITALS: BP 137/101; PULSE 107; TEMP 97.4
[2020-06-03 06:21] LABS: BASO % 0.4 % (0.0-2.0); EOS # 0.1 (0.0-0.7); EOS % 1.1 % (0-4.0); GRAN # 6.6 (1.4-6.5); GRAN % 70.5 % (42.2-75.2); LYMPH # 1.6 (1.2-3.4); MEAN CELL VOLUME 78 fl (80.0-100.0); MEAN CORPUSCULAR HEMOGLOBIN 23 pg (27.0-31.0); MEAN CORPUSCULAR HGB CONC 29 g/dl (33.0-37.0); MONO % 10.3 % (1.7-9.3); PLATELET COUNT 175 K/mm3 (130-400); RED BLOOD COUNT 4.44 M/mm3 (4.10-5.30); REDCELL DISTRIBUTION WIDTH-CV 18.7 % (11.5-14.5)
[2020-06-03 06:31] LABS: HEMATOCRIT 34.5 % (37.0-47.0)
[2020-06-03 06:35] LABS: CALCIUM 9.1 mg/dL (8.4-10.2); CREATININE, serum 0.83 (0.52-1.25); POTASSIUM 3.7 mmol/L (3.4-5.0)
[2020-06-03 07:05] VITALS: BP 170/95; PULSE 106; TEMP 98
[2020-06-03 11:10] VITALS: BP 167/75; PULSE 105; TEMP 98.5
[2020-06-03 17:00] VITALS: BP 143/74; PULSE 103; TEMP 98.5
[2020-06-03 21:32] VITALS: BP 152/77; PULSE 105; TEMP 98.6
[2020-06-04] VITALS (7 sets, daily range): BP systolic 121–169; BP diastolic 68–98; PULSE 97–109; TEMP 97.8–98.7
[2020-06-04 06:51] LABS: MEAN CELL VOLUME 78 fl (80.0-100.0); MEAN CORPUSCULAR HGB CONC 28 g/dl (33.0-37.0); PLATELET COUNT 175 K/mm3 (130-400); REDCELL DISTRIBUTION WIDTH-CV 18.5 % (11.5-14.5)
[2020-06-04 07:00] LABS: ALBUMIN 3.1 gm/dL (3.5-5.0); BILIRUBIN,TOTAL 0.5 mg/dL (0.0-1.0); CALCIUM 8.8 mg/dL (8.4-10.2); CREATININE, serum 0.91 (0.52-1.25); POTASSIUM 3.5 mmol/L (3.4-5.0); TOTAL PROTEIN 6.7 gm/dL (6.4-8.2)
[2020-06-04 07:10] LABS: HEMATOCRIT 34.5 % (37.0-47.0); HEMOGLOBIN 9.6 g/dl (12.5-16.0); MEAN CORPUSCULAR HEMOGLOBIN 22 pg (27.0-31.0)
[2020-06-04 09:24] LABS: ANISOCYTOSIS 1+; EOSINOPHIL 1 % (0-4); LYMPHOCYTE 11 % (20.0-51.0); NEUTROPHILS 79 % (42.0-75.2); PLATELET ESTIMATE NORMAL (NORMAL)
[2020-06-04 09:25] LABS: HYPOCHROMIA 3+; MICROCYTOSIS 1+; OVALOCYTES 1+; TARGET CELLS 1+
[2020-06-05 03:27] VITALS: BP 142/67; PULSE 105; TEMP 98.4
[2020-06-05 07:53] VITALS: BP 126/71; PULSE 100; TEMP 98.2
[2020-06-05 08:28] LABS: BASO % 0.2 % (0.0-2.0); EOS # 0.3 (0.0-0.7); GRAN # 5.6 (1.4-6.5); GRAN % 67.5 % (42.2-75.2); LYMPH # 1.5 (1.2-3.4); LYMPH % 18.1 % (20.0-51.0); MEAN CELL VOLUME 80 fl (80.0-100.0); MEAN CORPUSCULAR HGB CONC 28 g/dl (33.0-37.0); MEAN PLATELET VOLUME 10.9 fl (7.4-10.4); MONO # 0.8 (0.1-0.6); MONO % 10.1 % (1.7-9.3); PLATELET COUNT 186 K/mm3 (130-400); RED BLOOD COUNT 4.18 M/mm3 (4.10-5.30); REDCELL DISTRIBUTION WIDTH-CV 18.5 % (11.5-14.5)
[2020-06-05 08:29] LABS: HEMATOCRIT 33.3 % (37.0-47.0); HEMOGLOBIN 9.2 g/dl (12.5-16.0); MEAN CORPUSCULAR HEMOGLOBIN 22 pg (27.0-31.0)
[2020-06-05 08:37] LABS: CALCIUM 8.6 mg/dL (8.4-10.2); CREATININE, serum 0.8 (0.52-1.25); POTASSIUM 3.8 mmol/L (3.4-5.0)
[2020-06-05 12:29] VITALS: BP 144/72; PULSE 99; TEMP 98.3
[2020-06-05 16:56] VITALS: BP 134/60; PULSE 97; TEMP 98.3
[2020-06-05 17:49] LABS: ARTERIAL BLD GAS O2 SATURATION 89.7 % (92-100); ARTERIAL BLD GAS TCO2 CT 49.1; ARTERIAL BLOOD GAS BASE EXCESS 19.3 (-2-2); ARTERIAL BLOOD GAS HCO3 46.9 meq/L (22-26); ARTERIAL BLOOD GAS PO2 57.2 mmHg (80-100); ARTERIAL BLOOD GAS pH 7.43 (7.35-7.45)
[2020-06-05 17:52] LABS: ARTERIAL BLOOD GAS PCO2 73.1 mmHg (35-45)
[2020-06-05 19:29] VITALS: BP 142/89; PULSE 102; TEMP 98.6
[2020-06-05 23:34] VITALS: BP 132/70; PULSE 94; TEMP 98.3
[2020-06-06 05:22] VITALS: BP 130/60; PULSE 93; TEMP 98.2
[2020-06-06 07:43] LABS: BASO % 0.4 % (0.0-2.0); EOS # 0.2 (0.0-0.7); EOS % 2.7 % (0-4.0); GRAN # 5.4 (1.4-6.5); GRAN % 65.5 % (42.2-75.2); LYMPH # 1.8 (1.2-3.4); LYMPH % 21.4 % (20.0-51.0); MEAN CELL VOLUME 78 fl (80.0-100.0); MEAN CORPUSCULAR HGB CONC 29 g/dl (33.0-37.0); MONO # 0.8 (0.1-0.6); MONO % 9.4 % (1.7-9.3); PLATELET COUNT 208 K/mm3 (130-400); RED BLOOD COUNT 4.06 M/mm3 (4.10-5.30); REDCELL DISTRIBUTION WIDTH-CV 18.5 % (11.5-14.5)
[2020-06-06 07:53] LABS: HEMATOCRIT 31.6 % (37.0-47.0); MEAN CORPUSCULAR HEMOGLOBIN 22 pg (27.0-31.0)
[2020-06-06 07:55] LABS: CALCIUM 8.9 mg/dL (8.4-10.2); CREATININE, serum 0.77 (0.52-1.25); POTASSIUM 3.6 mmol/L (3.4-5.0)
[2020-06-06 08:34] VITALS: BP 132/63; PULSE 93; TEMP 98.7
[2020-06-06] MEDS ORDERED: DOXYCYCLINE 10100 MG PO (09:09)
[2020-06-06] MEDS ORDERED: AMOXICILLIN 8751 TAB PO (09:10)
[2020-06-06 12:38] VITALS: BP 108/82; PULSE 102; TEMP 97.3
[2020-06-06 13:58] VITALS: BP 139/88; PULSE 88; TEMP 97.3
== END 2020-06-06 17:55 | disposition home or self-care (01) | DRG 871 ==
LOC: COL.ER 17:34 → ICU 20:44 → MEDICAL 20:44 → ICU 05-30 09:22 → MEDICAL 06-02 18:06
PROVIDERS: Family Medicine; Physician Assistant; Student in an Organized Health Care Education/Training Program; ADMIT Hospitalist
PROC: 02HV33Z Insertion of Infusion Device into Superior Vena Cava, Percutaneous Approach (ICD-10-PCS; principal; 2020-05-29)
DX: A41.51 Sepsis due to Escherichia coli [E. coli] (principal); R65.21 Severe sepsis with septic shock; J96.21 Acute and chronic respiratory failure with hypoxia; N39.0 Urinary tract infection, site not specified; N17.9 Acute kidney failure, unspecified; E87.1 Hypo-osmolality and hyponatremia; E66.2 Morbid (severe) obesity with alveolar hypoventilation; E87.3 Alkalosis; Z68.43 Body mass index [BMI] 50.0-59.9, adult; I27.20 Pulmonary hypertension, unspecified; F41.9 Anxiety disorder, unspecified; F32.9 Major depressive disorder, single episode, unspecified; Z20.822 Contact with and (suspected) exposure to COVID-19; N18.9 Chronic kidney disease, unspecified; I12.9 Hypertensive chronic kidney disease with stage 1 through stage 4 chronic kidney disease, or unspecified chronic kidney disease; E87.8 Other disorders of electrolyte and fluid balance, not elsewhere classified; N20.0 Calculus of kidney; I89.0 Lymphedema, not elsewhere classified; D50.9 Iron deficiency anemia, unspecified; Z86.16 Personal history of COVID-19; Z99.81 Dependence on supplemental oxygen; Z86.718 Personal history of other venous thrombosis and embolism; Z88.2 Allergy status to sulfonamides
CPT/HCPCS: 99223-AI; 99231-AI; 99232-AI; 99233-AI; 99239; J0692; J0696; J1100; J1644; J1940; J2405; J3010; J3370; J7030; J7050; J7060; J7120; Q9967

== ENCOUNTER → 2020-06-22 | Outpatient (CLI) | payer MEDICARE, OTHER ==
[~2020-06-22] MED LIST changes: +AMOXICILLIN 8751 TAB PO; +ASPIRIN E.C. 8181 MG PO; +CALCIUM 600MG+D1 TAB PO; +COMPAZINE 110 MG/TAB PO; +COZAAR 25MG25 MG/TAB PO; +FLOMAX 0.40.4 MG/CAP; +HYGROTON 2525 MG/TAB; +LIPITOR 80MG80 MG PO; +OMEGA-3 1000 MG1 CAP PO; +PRILOSEC 20MG20 MG PO; +VITAMIN D31000 I1 PO
== END ==
LOC: COL.RAD 09:11
DX: N28.89 Other specified disorders of kidney and ureter (principal); N30.00 Acute cystitis without hematuria

== ENCOUNTER 2021-02-13 22:19 | Emergency (ER) | payer MEDICARE, OTHER ==
[2021-02-13 23:12] VITALS: TEMP 98.8
[2021-02-13 23:22] LABS: BASO % 0.3 % (0.0-2.0); EOS # 0.3 K/mm3 (0.0-0.7); EOS % 3.7 % (0-4.0); GRAN # 4.7 K/mm3 (1.4-6.5); GRAN % 62.2 % (42.2-75.2); HEMATOCRIT 40.3 % (37.0-47.0); HEMOGLOBIN 11.8 g/dl (12.5-16.0); LYMPH # 1.8 K/mm3 (1.2-3.4); LYMPH % 23.8 % (20.0-51.0); MEAN CELL VOLUME 88 fl (80.0-100.0); MEAN CORPUSCULAR HEMOGLOBIN 26 pg (27.0-31.0); MEAN CORPUSCULAR HGB CONC 29 g/dl (33.0-37.0); MEAN PLATELET VOLUME 10.9 fl (7.4-10.4); MONO # 0.7 K/mm3 (0.1-0.6); MONO % 9.7 % (1.7-9.3); PLATELET COUNT 161 K/mm3 (130-400); RED BLOOD COUNT 4.57 M/mm3 (4.10-5.30); REDCELL DISTRIBUTION WIDTH-CV 14.6 % (11.5-14.5)
[2021-02-13 23:30] LABS: PROTHROMBIN TIME 11.3 SECONDS (9.7-12.8)
[2021-02-13 23:36] LABS: ALANINE AMINOTRANSFERASE 8 U/L (0-55); ALBUMIN 3.2 gm/dL (3.4-4.8); ALKALINE PHOSPHATASE 61 U/L (40-150); ANION GAP 7 mmol/L (7-16); AST,SGOT 15 U/L (5-34); BILIRUBIN,TOTAL 0.2 mg/dL (0.2-1.2); BLOOD UREA NITROGEN 19 mg/dL (10-20); CALCIUM 9.4 mg/dL (8.4-10.2); CHLORIDE 92 mmol/L (98-107); CREATININE, serum 0.85 mg/dL (0.57-1.11); GLUCOSE 94 mg/dL (70-99); POTASSIUM 4.1 mmol/L (3.5-4.5); SODIUM 141 mmol/L (136-145); TOTAL PROTEIN 7.5 gm/dL (6.2-8.1)
[2021-02-13 23:43] LABS: CARBON DIOXIDE 42 mmol/L (23-31); TROPONIN-I < 0.010 ng/mL (0.00-0.033)
[2021-02-14] MEDS ORDERED: PREDNISONE20 MG PO (00:17)
[2021-02-14 01:05] VITALS: BP 159/78; PULSE 104
== END 2021-02-14 01:05 | disposition home or self-care (01) ==
LOC: COL.ER 22:19
PROVIDERS: Emergency Medicine
DX: J06.9 Acute upper respiratory infection, unspecified (principal); N39.0 Urinary tract infection, site not specified; R79.81 Abnormal blood-gas level; F41.9 Anxiety disorder, unspecified; F32.A Depression, unspecified; I27.20 Pulmonary hypertension, unspecified; E66.01 Morbid (severe) obesity due to excess calories; Z98.890 Other specified postprocedural states; Z88.2 Allergy status to sulfonamides; Z20.822 Contact with and (suspected) exposure to COVID-19; Z79.899 Other long term (current) drug therapy
CPT/HCPCS: J2930

== ENCOUNTER 2022-12-12 10:40 | Emergency (ER) | payer MEDICARE ==
[~2022-12-12] VITALS: Ht 172.7 cm; Wt 181.8 kg
[~2022-12-12 10:40] MED LIST changes: +CORDARONE200 MG/TAB PO; +COUMADIN 1010 MG/TAB PO; +CRANBERRY 4001 EACH PO; +DIFLUCAN150 MG PO; +MACROBID 1100 MG/CAP PO; +PACERONE200 MG PO; +PRINIVIL5 MG PO; +PRINZIDE 25 MG-1 TAB PO; +PROTONIX 40MG T40 MG PO; +SANCTURA XR60 MG PO; +TOPROL XL 25MG25 MG PO
[2022-12-12 11:10] LABS: BASO % 0.4 % (0.0-2.0); EOS % 0.3 % (0.0-4.0); GRAN # 5.5 K/mm3 (1.4-6.5); GRAN % 77.5 % (42.2-75.2); LYMPH # 0.8 K/mm3 (1.2-3.4); LYMPH % 10.6 % (20.0-51.0); MEAN CELL VOLUME 91 fl (80.0-100.0); MEAN CORPUSCULAR HGB CONC 26 g/dl (33.0-37.0); MEAN PLATELET VOLUME 11.8 fl (7.4-10.4); MONO # 0.8 K/mm3 (0.1-0.6); MONO % 10.9 % (1.7-9.3); PLATELET COUNT 247 K/mm3 (130-400); REDCELL DISTRIBUTION WIDTH-CV 17.8 % (11.5-14.5)
[2022-12-12 11:12] LABS: MEAN CORPUSCULAR HEMOGLOBIN 24 pg (27-31)
[2022-12-12 11:18] LABS: INR 1.6 (0.8-3.0); PROTHROMBIN TIME 17.5 SECONDS (9.7-12.8)
[2022-12-12 11:21] LABS: PARTIAL THROMBOPLASTIN TIME 33.1 SECONDS (26.0-37.0)
[2022-12-12 11:29] LABS: ALANINE AMINOTRANSFERASE 11 U/L (0-55); ALKALINE PHOSPHATASE 55 U/L (40-150); ANION GAP 8 mmol/L (7-16); AST,SGOT 14 U/L (5-34); BILIRUBIN,TOTAL 0.3 mg/dL (0.2-1.2); BLOOD UREA NITROGEN 21 mg/dL (10-20); CALCIUM 8.7 mg/dL (8.4-10.2); CARBON DIOXIDE 36 mmol/L (23-31); CHLORIDE 95 mmol/L (98-107); CREATININE, serum 1.16 mg/dL (0.57-1.11); GLUCOSE 110 mg/dL (70-99); POTASSIUM 4.3 mmol/L (3.5-4.5); SODIUM 139 mmol/L (136-145); TOTAL PROTEIN 6.4 gm/dL (6.2-8.1)
[2022-12-12 11:29] LABS: COLLECTION METHOD CATHETER
[2022-12-12 11:35] LABS: TROPONIN-I < 0.010 ng/mL (0.00-0.033)
[2022-12-12 11:36] LABS: SQUAMOUS EPITHELIAL 0-2 /hpf (0-10); URINE BACTERIA None Seen /hpf (NONE SEEN); URINE RBC None Seen /hpf (0-2)
[2022-12-12 11:38] LABS: PH 6.5 (5.0-8.5); URINE APPEARANCE Clear (CLEAR/HAZY); URINE BLOOD Negative (NEGATIVE); URINE COLOR Yellow (YELLOW); URINE GLUCOSE Negative (NEGATIVE); URINE KETONE Negative (NEGATIVE); URINE NITRATE Negative (NEGATIVE); URINE PROTEIN(semi-quant) 1+ (NEGATIVE); URINE UROBILINOGEN 0.2 E.U/dL (0.2-1.0)
[2022-12-12 13:16] VITALS: BP 122/87; PULSE 89; TEMP 98.4
[2022-12-12 13:41] VITALS: BP 125/68; PULSE 87; TEMP 98.1
[2022-12-12 13:55] VITALS: BP 130/71; PULSE 89
[2022-12-12 13:56] VITALS: BP 104/85; PULSE 86
[2022-12-12 14:46] VITALS: BP 116/73; PULSE 89; TEMP 97.7
== END 2022-12-12 14:49 | disposition short-term general hospital (02) ==
LOC: COL.ER 10:40
PROVIDERS: Emergency Medicine
DX: D64.9 Anemia, unspecified (principal); R09.02 Hypoxemia; J44.9 Chronic obstructive pulmonary disease, unspecified; I44.7 Left bundle-branch block, unspecified; Z99.81 Dependence on supplemental oxygen; Z20.822 Contact with and (suspected) exposure to COVID-19
CPT/HCPCS: P9016

== ENCOUNTER 2023-01-08 07:46 | Outpatient (RCR) | payer MEDICARE, OTHER ==
[~2023-01-08 07:46] MED LIST changes: +ELIQUIS 5MG PO
[2023-01-08 08:38] VITALS: BP 105/69; PULSE 90; TEMP 98.3
[2023-01-08 08:54] LABS: HEMATOCRIT 23.6 % (37.0-47.0); HEMOGLOBIN 6.7 g/dl (12.5-16.0)
--- NOTE | 2023-01-08 08:54 | NUR ---
LAB CALLED AND TOLD THIS RN THAT PT'S HEMOGLOBIN IS 6.7 AND HEMATOCRIT IS 23.6 AT 0852 ON 01/08/23.
[2023-01-08 09:48] VITALS: BP 102/61; PULSE 89; TEMP 98.2
[2023-01-08 10:10] VITALS: BP 111/77; BP 99/60; PULSE 90; TEMP 98
[2023-01-08 10:25] VITALS: BP 93/53; PULSE 90
[2023-01-08 10:55] VITALS: BP 97/84; PULSE 88
[2023-01-08 11:15] VITALS: BP 97/58; PULSE 86
== END 2023-01-08 11:54 | disposition home or self-care (01) ==
LOC: EUO 07:46
PROVIDERS: Internal Medicine
DX: I48.0 Paroxysmal atrial fibrillation (principal); D64.9 Anemia, unspecified
CPT/HCPCS: J7050; P9016

== ENCOUNTER 2023-01-20 08:02 | Outpatient (RCR) | payer MEDICARE, OTHER ==
[~2023-01-20] VITALS: Ht 172.7 cm; Wt 222.7 kg
[2023-01-20 08:55] LABS: HEMATOCRIT 22.9 % (37.0-47.0); HEMOGLOBIN 6.6 g/dl (12.5-16.0)
--- NOTE | 2023-01-20 08:59 | NUR ---
CRITICAL LAB RESULTS CALLED TO YULIA ROSS RN AT 0855. THIS RN CALLED CRITICAL RESULTS TO DR. NGUYEN'S OFFICE AT 0900. HEMOGLOBIN IS 6.6, HEMATOCRIT IS 22.9 INFORMATION PASSED ON TO SHANTEL KRAUSE.
[2023-01-20 10:20] VITALS: BP 120/50; PULSE 76; TEMP 98.3
[2023-01-20 10:35] VITALS: BP 123/61; PULSE 74; TEMP 98.5
[2023-01-20 11:05] VITALS: BP 125/65; PULSE 74; TEMP 98.5
[2023-01-20 12:05] VITALS: BP 112/63; PULSE 75; TEMP 98.4
[2023-01-20 12:15] LABS: HEMATOCRIT 24.9 % (37.0-47.0); HEMOGLOBIN 7.1 g/dl (12.5-16.0)
--- NOTE | 2023-01-20 13:16 | NUR ---
pt tolerated one unit of PRBC well and was assisted to main lobby via wheelchair. IV discontinued upon discharge and pt accompanied by to main lobby. pt free from acute concerns and complaints at time of discharge. IV signs remained within normal limits throughout infusion.
== END 2023-01-20 13:00 | disposition home or self-care (01) ==
LOC: EUO 08:02
PROVIDERS: Internal Medicine
DX: D64.9 Anemia, unspecified (principal)
CPT/HCPCS: J7050; P9016

== ENCOUNTER 2023-06-08 10:46 | Emergency (ER) | payer MEDICARE, OTHER ==
[~2023-06-08] VITALS: Ht 172.7 cm; Wt 181.8 kg
[~2023-06-08 10:46] MED LIST changes: +COUMADIN 5MG5 MG/TAB PO; +DESENEX TP; -PACERONE200 MG PO
[2023-06-08 10:55] VITALS: TEMP 98.3
[2023-06-08] MEDS ORDERED: Cocaine 4% (40 MG/ML) Nasal Soln 4 ML Bottle NS ONE (11:30)
[2023-06-08] MEDS ORDERED: cloNIDine 0.1 MG TAB PO ONE (12:15)
[2023-06-08 12:18] LABS: BASO % 0.4 % (0.0-2.0); EOS % 0.3 % (0.0-4.0); GRAN # 5.3 K/mm3 (1.4-6.5); GRAN % 75.3 % (42.2-75.2); LYMPH # 0.9 K/mm3 (1.2-3.4); LYMPH % 12.5 % (20.0-51.0); MEAN CELL VOLUME 84 fl (80.0-100.0); MEAN CORPUSCULAR HGB CONC 30 g/dl (33.0-37.0); MEAN PLATELET VOLUME 11.1 fl (7.4-10.4); MONO # 0.8 K/mm3 (0.1-0.6); MONO % 11.1 % (1.7-9.3); PLATELET COUNT 204 K/mm3 (130-400); RED BLOOD COUNT 3.71 M/mm3 (4.10-5.30); REDCELL DISTRIBUTION WIDTH-CV 17.2 % (11.5-14.5)
[2023-06-08 12:19] LABS: HEMOGLOBIN 9.3 g/dl (12.5-16.0); MEAN CORPUSCULAR HEMOGLOBIN 25 pg (27-31)
[2023-06-08 12:25] LABS: INR 3.5 (0.8-3.0); PROTHROMBIN TIME 36.4 SECONDS (9.7-12.8)
[2023-06-08 13:35] VITALS: BP 145/87; PULSE 76
== END 2023-06-08 13:38 | disposition home or self-care (01) ==
LOC: COL.ER 10:46
PROVIDERS: Personal Emergency Response Attendant
DX: R04.0 Epistaxis (principal); I10 Essential (primary) hypertension; R79.1 Abnormal coagulation profile; Z79.01 Long term (current) use of anticoagulants

== ENCOUNTER 2023-06-13 21:30 | Emergency (ER) | payer MEDICARE, OTHER ==
[~2023-06-13] VITALS: Ht 172.7 cm; Wt 181.8 kg
[2023-06-13 21:42] VITALS: TEMP 98.5
[2023-06-13 22:35] LABS: BASO % 0.3 % (0.0-2.0); EOS # 0.1 K/mm3 (0.0-0.7); GRAN # 7.5 K/mm3 (1.4-6.5); GRAN % 79.8 % (42.2-75.2); LYMPH % 10.4 % (20.0-51.0); MEAN CELL VOLUME 88 fl (80.0-100.0); MEAN CORPUSCULAR HGB CONC 28 g/dl (33.0-37.0); MEAN PLATELET VOLUME 11.3 fl (7.4-10.4); MONO # 0.8 K/mm3 (0.1-0.6); MONO % 8.1 % (1.7-9.3); PLATELET COUNT 216 K/mm3 (130-400)
[2023-06-13 22:39] LABS: HEMATOCRIT 29.8 % (37.0-47.0); HEMOGLOBIN 8.4 g/dl (12.5-16.0); MEAN CORPUSCULAR HEMOGLOBIN 25 pg (27-31)
[2023-06-13 22:42] LABS: INR 2.5 (0.8-3.0); PROTHROMBIN TIME 26.4 SECONDS (9.7-12.8)
[2023-06-13 22:50] LABS: ALBUMIN 3.2 gm/dL (3.4-4.8); BILIRUBIN,TOTAL 0.2 mg/dL (0.2-1.2); CALCIUM 8.9 mg/dL (8.4-10.2); CREATININE, serum 0.96 mg/dL (0.57-1.11); POTASSIUM 4.8 mmol/L (3.5-4.5); TOTAL PROTEIN 6.7 gm/dL (6.2-8.1)
[2023-06-13] MEDS ORDERED: Tranexamic Acid 1,000 MG/10 ML VIAL NS ONE (23:00)
[2023-06-14 00:16] VITALS: BP 153/84; PULSE 89
== END 2023-06-14 00:33 | disposition home or self-care (01) ==
LOC: COL.ER 21:30
PROVIDERS: Emergency Medicine
DX: R04.0 Epistaxis (principal); D50.0 Iron deficiency anemia secondary to blood loss (chronic); R79.1 Abnormal coagulation profile; I48.91 Unspecified atrial fibrillation; E66.01 Morbid (severe) obesity due to excess calories; Z79.01 Long term (current) use of anticoagulants